=== PATIENT | male | born 1990 | race Caucasian/White ===

== ENCOUNTER 2016-10-18 13:13 | Emergency (ER) | payer OTHER, MEDICARE, MEDICAID ==
[~2016-10-18] VITALS: Ht 175.3 cm; Wt 67.9 kg
[~2016-10-18 13:13] MED LIST: AGM875T PO; CLOB10TA PO; DOCU250C2 PO; FAMO20T PO; INSU100I SQ; INSU100I25 SQ; LAMO100T PO; LEVO25TA5 PO; LIP40 PO; LISI-567 PO; LIT300 PO; OXCA150T PO; RISP1TAB90 PO; TOPI25TA26 PO; VENL75TA3 PO
[2016-10-18 13:17] VITALS: BP 96/66; PULSE 121; RESP 18; O2SAT 97
--- NOTE | 2016-10-18 13:38 | ED.REPORT ---
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 He has also had a cough. The patient is unable to provide a timeline of symptoms. His dad is concerned that the patient may have pneumonia because he sits outside in the cold a lot. Nursing Notes Stated Complaint: CHEST PAIN Chief Complaint: Chest Pain Nursing Notes Reviewed: Yes Allergies: Coded Allergies: bupropion (Verified Allergy, Unknown, 04/13/16) quetiapine fumarate (Verified Allergy, Unknown, 04/13/16) lorazepam (Verified Adverse Reaction, Unknown, does not go well with his other meds per pshychiatrist, 04/13/16) Scheduled Amoxicillin/Clav K 875-125 mg (Amoxicillin/Clav K 875-125 mg) 875 Mg Tab 1 TAB PO BID Atorvastatin (Lipitor) 40 Mg Tablet 40 MG PO HS Clobazam (Onfi) 10 Mg Tablet 10 MG PO BID Docusate Sodium (Docusate Sodium) 250 Mg Capsule 250 MG PO DAILY Famotidine (Pepcid) 20 Mg Tablet 20 MG PO DAILY Insulin Detemir (Levemir Flextouch) 100 Unit/1 Ml Insuln.pen 22 UNIT SQ AM Insulin Detemir (Levemir Flextouch) 100 Unit/1 Ml Insuln.pen 16 UNIT SQ PM Lamotrigine (Lamictal) 100 Mg Tablet 300 MG PO 0800 Lamotrigine (Lamictal) 100 Mg Tablet 200 MG PO 16 Levothyroxine (Levothyroxine) 25 Mcg Tablet 25 MCG PO DAILY Lisinopril (Lisinopril) 20 Mg Tablet 20 MG PO DAILY [place] Carbonate ([place] Carbonate) 300 Mg Cap 600 MG PO HS Oxcarbazepine (Oxcarbazepine) 150 Mg Tablet 450 MG PO BID Risperidone (Risperdal) 1 Mg Tablet 3 MG PO DAILY Risperidone (Risperdal) 1 Mg Tablet 1.5 MG PO HS Topiramate (Topamax) 25 Mg Tablet 50 MG PO 2000 Venlafaxine (Venlafaxine) 75 Mg Tablet 150 MG PO BID Scheduled PRN Insulin Aspart (NovoLOG U-100 Pen) 100 Unit/Ml Insuln.pen 0 SQ DIRECTED PRN PRN hyperglycemia General Time Seen by MD: 13:26 Chief Complaint Chest pain Hx Obtained From: Patient, Other family... (Father) Arrived By: Walk-in Sudden in Onset?: No Onset Occurred: Onset unknown Symptom Duration: Since onset Location: : Chest Quality: Painful Severity: Current: Moderate Severity: Maximum: Moderate Recent Healthcare: No recent hospitalization Similar Sx Previous: No Past Medical History Past Medical History Notes: Neuro: Dr. Melton PCP: Dr. Mcdonald Psych: Dr. Chaudhry Case Manager Specialist: Dr. Bowen Phycologist: Dr. Aponte Past Medical History 1. Seizure disorder, followed by Dr. Veras at [facility]. 2. Traumatic brain injury. 3. Polysubstance abuse. 4. Major depression. 5. History of suicidal ideation and multiple attempts. 6. Traumatic urethral injury 6. Diabetes mellitus type 1. 7. Hypothyroidism. 8. Hypertension. 9. Hyperlipidemia. 10. 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 11. Traumatic brain injury with expressive aphasia. 12. Stroke Reports: Diabetes mellitus, Mental illness Past Surgical History pelvis rebuilt at [facility] [place] 2004 Family History He has a family history of bipolar and schizophrenia. Records show 2 completed suicides one on each side of the family Smoking History Former Smoker Social History Smokes with a vape pen, recently quit Alcohol Use: Denies alcohol use Drug Use: Denies drug use Other Social History: Good social support, Lives with parents, Local resident Occupation no work or school Ambulatory Status Independent Review of Systems Full Review of Systems Respiratory: Reports: Non-productive cough Cardiovascular: Reports: Chest pain Complete sys rev & neg: except as marked. Physical Exam Vital Signs Vital Signs Date Time Temp Pulse Resp B/P Pulse Ox O2 Delivery O2 Flow Rate FiO2 10/18/16 15:07 82 16 111/68 96 Room Air 10/18/16 15:03 82 16 111/68 96 Room Air 10/18/16 13:47 108 21 96/68 95 Room Air 10/18/16 13:17 36.9 121 18 96/66 97 Room Air Initial VS: Reviewed Head / Eyes: Atraumatic, Normocephalic, PERRL ENT: Mucous membranes moist, Conjunctiva normal, No scleral icterus Neck: Supple, Non-tender, Full range of motion Abdomen / GI: Soft, Non-tender, No guarding, No rebound, No distention Lymphatic: No lymphadenopathy Extremities: Vascular intact, Neuro intact, No swelling, No tenderness Skin: Warm, Dry, No cyanosis Neurologic: Nonfocal General/Constitutional: Awake, Alert, Cooperative Respiratory / Chest: Breath sounds NL, Breath sounds = bilat, No respiratory distress, No rales, No rhonchi, No wheezing, No retractions, No stridor, No chest wall deformity Tenderness about his right lateral chest wall. There is no rash or signs of trauma. Cardiovascular: Regular rhythm, Heart sounds NL, No murmurs, No rubs, Cap refill not delayed, Peripheral circulation NL, Pulses = bilaterally, No gross BP differential Heart Rate / Rhythm: Positive: Tachycardia Lower Extremity / Pelvis / MS: Neurologic intact, Vascular intact, No edema No calf swelling or tenderness Interpretation & Diagnostics Lab Results Interpretation Result Diagram: 10/18/16 1412 10/18/16 1412 Test 10/18/16 14:12 10/18/16 14:26 White Blood Count 8.6th/mm3 (3.8-10.1) Red Blood Count 4.36mil/mm3 (4.40-5.80) Hemoglobin 13.6g/dL (13.8-17.2) Hematocrit 39.1% (41.0-50.0) Mean Corpuscular Volume 89.7fL (81-100) Mean Corpuscular Hemoglobin 31.2pg (27.0-35.0) Mean Corpuscular Hemoglobin Concent 34.8% (32.0-37.0) Red Cell Distribution Width 12.2% (12.3-15.4) Platelet Count 228bil/L (150-400) Neutrophils (%) (Auto) 72.1% (40-74) Lymphocytes (%) (Auto) 15.1% (14-46) Monocytes (%) (Auto) 9.0% (4-12) Eosinophils (%) (Auto) 2.8% (0-5) Basophils (%) (Auto) 0.9% (0-3) Sodium Level 132mEq/L (134-144) Potassium Level 4.7mEq/L (3.5-5.2) Chloride Level 96mEq/L (97-108) Carbon Dioxide Level 21mmol/L (18-29) Blood Urea Nitrogen 24mg/dL (6-20) Creatinine 1.05mg/dL (0.76-1.27) Estimat Glomerular Filtration Rate 90mL/min (>59) Glucose Level 217mg/dL (60-99) Calcium Level 9.5mg/dL (8.5-10.1) Total Bilirubin 0.3mg/dL (0.0-1.2) Aspartate Amino Transf (AST/SGOT) 15U/L (0-50) Alanine Aminotransferase (ALT/SGPT) 15U/L (0-44) Alkaline Phosphatase 119U/L (25-150) Total Protein 6.7g/dL (6.4-8.4) Albumin 4.2g/dL (3.4-5.0) Hold Blum Top Tube Received (Received) ECG Interpretation ECG Interpretation: Sinus tachycardia with a rate of 110 bpm Otherwise normal EKG Time: 13:30 Interpreted by: ED physician X-Ray Chest Interpretation Chest Xray Interpretation: No acute cardiopulmonary disease. View: Portable, 1 view Interpretation / Wet Read by: Wet read ED physician, Interpret - ED physician Re-Eval/Medical Decision Med Decision/Clinical Course The patient is a 26 year old male with history of a traumatic brain injury with cognitive delay and expressive aphasia, seizures, stroke, polysubstance abuse, depression, diabetes mellitus type I, hypothyroidism, and hyperlipidemia, who was brought to the emergency department by his father for right-sided chest pain. He has also had a cough. On arrival the patient is tachycardic though otherwise afebrile and hemodynamically stable with good oxygen saturation on room air. His lungs are clear. IV access was obtained and the patient was treated with IV fluids. His tachycardia resolved. He remained afebrile hemodynamically stable. CXR: Obtained, reviewed and interpreted by myself shows no evidence of acute infiltrates, effusions or pneumothorax. Cardiac and mediastinal silhouette normal. No bony or soft tissue abnormalities. EKG was obtained and interpreted by myself as documented above. LABS CBC: no leukocytosis, stable hematocrit, CMP: sodium 132, BUN 24, creatinine 1.05, LFTs normal, no significant electrolyte abnormalities. No evidence of pneumonia or pneumothorax. Patient is low risk for pulmonary embolism without any physical exam findings suggestive of DVT. Patient has no major pulmonary embolus risk factors. Chest x-ray reassuring as documented above. Chest wall pain reproducible with palpation suggesting musculoskeletal etiology. I feel the patient is at this time appropriate for discharge home. Advised ice pack/hot packs and stretching. Follow-up and return precautions were reviewed in detail with the patient as well as his father and he is discharged in stable condition. Source of Hx: Old records, Family Time of Eval: 14:54 Re-Evaluation/Progress Note: Rechecked the patient. Discussed plan for discharge. All questions were addressed. Counseled Regarding: Diagnosis, Lab results, Need for follow-up, When/why to return to ED Discharge & Departure Primary Impression: Chest wall pain Additional Impressions: Cough History of traumatic brain injury Tachycardia Dehydration Disposition: Home Discharge Condition All VS Reviewed: Yes Condition: Stable Additional Instructions: Thank you for seeking care at the emergency room. It is difficult for us to make definitive diagnoses in the ED but we believe that you are experiencing musculoskeletal pain. Our primary goal today in the ED was to evaluate you for any life-threatening conditions. Your evaluation was reassuring. You can take Ibuprofen and/or Tylenol as needed for your pain. You can also try applying a hot pack or ice pack if either of these help. You should follow-up with your primary doctor in the next week. You should return to the ED immediately if you develop increased pain, fevers, vomiting, shortness of breath, chest pain, lightheadedness, weakness or any other concerning signs or symptoms. Thank you for letting us partake in your care today. Referrals: Aren Mcdonald MD (PCP) Scribe Attestation Portions of this note were transcribed by Janna Chen. I, Dr. Tian personally performed the history, physical exam and medical decision-making; I reviewed and confirmed the accuracy of the information in the transcribed note. Signed by: Mariah Porter, 10/18/2016 at 1505. copies to: Aren Mcdonald MD, Beck O MD Oct 18, 2016 13:38 Janna Chen Oct 18, 2016 13:48
[2016-10-18 13:47] VITALS: BP 96/68; PULSE 108; RESP 21; O2SAT 95
[2016-10-18] MEDS ORDERED: 0.9% Sodium Chloride 1,000 ML IV ONE (13:49)
[2016-10-18 14:16] LABS: BASOPHILS % (AUTO) 0.9 % (0-3); EOSINOPHILS % (AUTO) 2.8 % (0-5); Mean Corpuscular Hemoglobin 31.2 pg (27.0-35.0); Mean Corpuscular Volume 89.7 fL (81-100); NEUTROPHILS % (AUTO) 72.1 % (40-74); Platelet Count 228 bil/L (150-400)
[2016-10-18 15:03] VITALS: BP 111/68; PULSE 82; RESP 16; O2SAT 96
[2016-10-18 15:07] VITALS: BP 111/68; PULSE 82; RESP 16; O2SAT 96
--- NOTE | 2016-10-18 15:15 | DRSVH ---
PROCEDURE: X-RAY CHEST, TWO VIEWS ([id number]) INDICATIONS: chest pain TECHNIQUE: 2 views of the chest were acquired. COMPARISON: [facility], CR, XR CHEST 1VW (PORTABLE), 01/05/2016, 21:03. [facility], CR, XR CHEST 1VW (PORTABLE), 01/05/2016, 21:26. FINDINGS: Surgical changes and devices: None. Lungs and pleura: No pleural effusions or pneumothorax. Lungs are clear. Mediastinum: Mediastinal contours are normal. Heart size is normal. Bones and chest wall: Old left sixth and seventh rib fractures are noted. Soft tissues appear unrema rkable. IMPRESSION: No acute cardiopulmonary disease. Dictated by: Yvette Patel M.D. on 10/18/2016 at 14:47 Approved by: Yvette Patel M.D. on 10/18/2016 at 14:48
== END 2016-10-18 15:09 | disposition home or self-care (01) ==
LOC: SED 13:13
DX: R07.89 Other chest pain (principal); R05 Cough; R00.0 Tachycardia, unspecified; E86.0 Dehydration; I10 Essential (primary) hypertension; E10.9 Type 1 diabetes mellitus without complications; E03.9 Hypothyroidism, unspecified; E78.5 Hyperlipidemia, unspecified; Z86.73 Personal history of transient ischemic attack (TIA), and cerebral infarction without residual deficits; Z87.820 Personal history of traumatic brain injury; Z79.4 Long term (current) use of insulin; Z87.891 Personal history of nicotine dependence; Z88.5 Allergy status to narcotic agent; Z88.8 Allergy status to other drugs, medicaments and biological substances
CPT/HCPCS: 71020; 80053; 85025; 93005; 96361; 96374; 99285; J7030

== ENCOUNTER 2017-03-18 16:28 | Inpatient (IN) | payer OTHER, MEDICARE, MEDICAID ==
[~2017-03-18] VITALS: Ht 167.6 cm; Wt 65.9 kg
[2017-03-18 16:38] VITALS: BP 121/80; PULSE 103; RESP 20; O2SAT 97
[2017-03-18 18:42] LABS: BASOPHILS % (AUTO) 0.6 % (0-3); EOSINOPHILS % (AUTO) 1.7 % (0-5); Mean Corpuscular Hemoglobin 32.1 pg (27.0-35.0); Mean Corpuscular Volume 92.1 fL (81-100); NEUTROPHILS % (AUTO) 77.3 % (40-74); Platelet Count 313 bil/L (150-400)
[2017-03-18 18:54] VITALS: BP 117/67; PULSE 72; RESP 20; O2SAT 99
--- NOTE | 2017-03-18 19:01 | ED.REPORT ---
HPI-Psychiatric Illness Date of Service Mar 18, 2017 ED Provider: Doug Yu MD A 27 year old male with a history of seizures, traumatic brain injury, diabetes , depression, suicidal ideation with self-mutilation and multiple attempts, stroke, hypertension and polysubstance abuse is brought to the ED by family due to suicidal ideation. The pt's mother came home today and found him standing in the garage confused, holding his ears, and responding to internal stimuli. The pt expressed suicidal ideation, which has caused significant concern for his mother. In recent weeks, the pt has displayed a pattern of increasing confusion. He has been found by a neighbor in the neighbor's home at night, and was later found by another neighbor in a field without knowledge of how he got there. Per pt, he "does what the voices tell him to" and is not feeling suicidal at this time. The pt is also requesting to discontinue all of his medications with the exception of his diabetes medication. Nursing Notes Stated Complaint: DEPRESSION Chief Complaint: Psychiatric Complaint Nursing Notes Reviewed: Yes Allergies: Coded Allergies: bupropion (Verified Allergy, Unknown, 04/13/16) quetiapine fumarate (Verified Allergy, Unknown, 04/13/16) lorazepam (Verified Adverse Reaction, Unknown, does not go well with his other meds per pshychiatrist, 04/13/16) Scheduled Atorvastatin (Lipitor) 40 Mg Tablet 40 MG PO HS Clobazam (Onfi) 10 Mg Tablet 10 MG PO BID Docusate Sodium (Docusate Sodium) 250 Mg Capsule 250 MG PO DAILY Famotidine (Pepcid) 20 Mg Tablet 20 MG PO DAILY Haloperidol (Haloperidol) 5 Mg Tablet 5 MG PO QAM Haloperidol (Haloperidol) 5 Mg Tablet 10 MG PO HS Insulin Detemir (Levemir Flextouch) 100 Unit/1 Ml Insuln.pen 22 UNIT SQ AM Insulin Detemir (Levemir Flextouch) 100 Unit/1 Ml Insuln.pen 16 UNIT SQ PM Lamotrigine (Lamictal) 100 Mg Tablet 300 MG PO 0800 Lamotrigine (Lamotrigine) 100 Mg Tablet 200 MG PO HS Levothyroxine (Levothyroxine) 25 Mcg Tablet 25 MCG PO DAILY Lisinopril (Lisinopril) 20 Mg Tablet 20 MG PO DAILY [place] Carbonate ([place] Carbonate) 300 Mg Cap 600 MG PO HS Oxcarbazepine (Oxcarbazepine) 300 Mg/5 Ml Oral.susp 450 MG PO QAM Oxcarbazepine (Oxcarbazepine) 300 Mg/5 Ml Oral.susp 600 MG PO HS Risperidone (Risperdal) 1 Mg Tablet 3 MG PO DAILY Risperidone (Risperdal) 1 Mg Tablet 1.5 MG PO HS Topiramate ER (Trokendi XR) 100 Mg Capsule 100 MG PO HS Venlafaxine (Venlafaxine) 100 Mg Tablet 200 MG PO BID Scheduled PRN Insulin Aspart (NovoLOG U-100 Pen) 100 Unit/Ml Insuln.pen 0 SQ DIRECTED PRN PRN hyperglycemia General Time Seen by MD: 18:56 Chief Complaint Suicidal ideation Hx Obtained From: Patient, Other family... Arrived By: Walk-in Onset Occurred: 1 - 4 hours ago Symptom Duration: Since onset Recent Healthcare: Recent doctor visit Similar Sx Previous: Yes Risk-Psychiatric Illness Suicide Risk Stratification Suicide Risk Factors - Adult: : Previous attempt: Prior psych admission: Substance abuse RF Statements: Risk factors reviewed Past Medical History Past Medical History Notes: Neuro: Dr. Melton PCP: Dr. Mcdonald Psych: Dr. Chaudhry Medical Assistant Internal Medicine: Dr. Bowen Phycologist: Dr. Aponte Last Admit 05/2016 w/depresison Past Medical History 1. Seizure disorder, followed by Dr. Veras at [facility]. 2. h/o Traumatic brain injury. 3. h/o Polysubstance abuse. 4. Major depression. 5. History of suicidal ideation and multiple attempts. 6. Traumatic urethral injury 6. Diabetes mellitus type 1. 7. Hypothyroidism. 8. Hypertension. 9. Hyperlipidemia. 10. Cognitive delay secondary to traumatic brain injury as a child (Traumatic brain injury with expressive aphasia) 12. Stroke Reports: Mental illness Past Surgical History pelvis rebuilt at [facility] [place] Family History He has a family history of bipolar and schizophrenia. Records show 2 completed suicides one on each side of the family Smoking History Former Smoker Social History Smokes with a vape pen, recently quit Alcohol Use: Denies alcohol use Other Social History: Good social support, Lives with parents, Local resident Occupation no work or school Ambulatory Status Independent Review of Systems Respiratory: Denies: Non-productive cough, Shortness of breath Cardiovascular: Denies: Chest pain GI: Denies: Abdominal pain, Vomiting Skin: Denies Rash Psychiatric: Reports: Depression, Suicidal ideation (denies currently) Complete sys rev & neg: except as marked. Physical Exam Initial Vital Signs Vital Signs (First) Date Time Temp Pulse Resp B/P Pulse Ox O2 Delivery O2 Flow Rate FiO2 03/18/17 16:38 36.8 103 20 121/80 97 Room Air Initial VS: Reviewed, Vital signs abnormal (Hr 103) General/Constitutional: Awake, Alert Neurologic: Oriented X3, No motor deficits, No sensory deficits Patient is slow, speech is slow-these are baseline for the patient Psychiatric: Affect NL Abnormal Mood/Affect: Positive: Flat affect Abnormal Thinking / Perception: Positive: Insight abnormal, Judgment abnormal, Suicidal, no plan Head / Eyes: Atraumatic, Normocephalic, PERRL, EOMI ENT: Atraumatic, Airway patent, Mucous membranes moist Respiratory / Chest: Atraumatic, Breath sounds NL, Breath sounds = bilat, No respiratory distress Cardiovascular: Heart rate NL, Regular rhythm, Heart sounds NL Abdomen: Atraumatic, Soft, Non-tender Skin: Atraumatic, Color NL, No rash, Warm, Dry Neck: Atraumatic, Supple, Full range of motion Back: Atraumatic, Full range of motion Upper Extremity / MS: Atraumatic, Full range of motion Lower Extremity / Pelvis / MS: Atraumatic, Full range of motion Interpretation & Diagnostics Lab Results Interpretation Result Diagram: 03/18/17182903/18/171914 Test 03/18/17 18:30 03/18/17 19:15 White Blood Count 8.8th/mm3 (3.8-10.1) Red Blood Count 4.20mil/mm3 (4.40-5.80) Hemoglobin 13.5g/dL (13.8-17.2) Hematocrit 38.7% (41.0-50.0) Mean Corpuscular Volume 92.1fL (81-100) Mean Corpuscular Hemoglobin 32.1pg (27.0-35.0) Mean Corpuscular Hemoglobin Concent 34.9% (32.0-37.0) Red Cell Distribution Width 12.0% (12.3-15.4) Platelet Count 313bil/L (150-400) Neutrophils (%) (Auto) 77.3% (40-74) Lymphocytes (%) (Auto) 13.3% (14-46) Monocytes (%) (Auto) 7.0% (4-12) Eosinophils (%) (Auto) 1.7% (0-5) Basophils (%) (Auto) 0.6% (0-3) Sodium Level 135mEq/L (134-144) Potassium Level 4.4mEq/L (3.5-5.2) Chloride Level 97mEq/L (97-108) Carbon Dioxide Level 23mmol/L (18-29) Blood Urea Nitrogen 14mg/dL (6-20) Creatinine 0.94mg/dL (0.76-1.27) Estimat Glomerular Filtration Rate 102mL/min (>59) Glucose Level 293mg/dL (60-99) Calcium Level 9.0mg/dL (8.5-10.1) Total Bilirubin 0.2mg/dL (0.0-1.2) Aspartate Amino Transf (AST/SGOT) 25U/L (0-50) Alanine Aminotransferase (ALT/SGPT) 26U/L (0-44) Alkaline Phosphatase 88U/L (25-150) Total Protein 6.3g/dL (6.4-8.4) Albumin 4.1g/dL (3.4-5.0) Thyroid Stimulating Hormone (TSH) 1.640uIU/mL (0.450-4.500) Hold Blum Top Tube Received (Received) [place] Level 0.5mEq/L (0.5-1.5) Lab Results Interpretation: Normal CMP mild hyperglycemia lithium level normal Alcohol 0 U tox negative Re-Eval/Medical Decision Med Decision/Clinical Course This is a 27-year-old male who presents with family with increasing periods of psychosis, depression, and intermittent suicidal ideation. Please see [employer] note for additional details of patients behaviors. Reports he is currently safe, but there is been escalating pattern or worsening symptoms in recent weeks. He is interested in voluntary hospitalization. He is cooperative in the department. Is no signs of intoxication or withdrawal. No acute medical issues were identified initial evaluation. [place] levels normal. She is hemodynamically [employer], and the patient and accepted to the care center for continued management. Source of Hx: Old records Re-Evaluation/Progress : Time of Eval: 21:29 Patient Status: Condition improved Re-Evaluation/Progress Note: Pt rechecked, who is stable. The diagnosis and plan for admission are discussed. The pt understands and agrees with the plan. All questions are addressed at this time. Consultation : Call Returned at: 21:26 Note: Spoke with social human services assistants regarding pt's case. Pt has been accepted to the care center. Differential Diagnosis: Positive: Suicidal, Negative: Alcohol abuse Counseled Regarding: Diagnosis, Lab results, Need for admission Discharge & Departure Impression: Primary Impression: Psychosis Psychosis type: unspecified psychosis type Qualified Code: F29 - Unspecified psychosis not due to a substance or known physiological condition Additional Impression: Suicidal ideation Disposition: ADMITTED TO HOSPITAL Discharge Condition All VS Reviewed: Yes Condition: Stable Referrals: Aren Mcdonald MD (PCP) Scribe Attestation Portions of this note were transcribed by Hugo Matthews. I, Dr. Yu personally performed the history, physical exam and medical decision-making; I reviewed and confirmed the accuracy of the information in the transcribed note. Signed by: Mariah Baker, 03/18/2017 and 0595. copies to: Aren Mcdonald MD, Matthew F MD Mar 18, 2017 19:01 HUGO MATTHEWS Mar 18, 2017 21:33
[2017-03-18 20:54] VITALS: BP 112/72; PULSE 82; RESP 20; O2SAT 96
[2017-03-18] MEDS ORDERED: TOPI100C PO (21:42)
[2017-03-18] MEDS ORDERED: CLOB10TA PO (21:42)
[2017-03-18] MEDS ORDERED: LAMO100T2 PO (21:42)
[2017-03-18] MEDS ORDERED: OXCA300O5 PO ×2 (21:42)
[2017-03-18] MEDS ORDERED: VENL100T3 PO (21:42)
[2017-03-18] MEDS ORDERED: HAL5 PO ×2 (21:42)
[2017-03-18] MEDS ORDERED: Insulin GLARgine 100 Unit/mL Syringe SUBQ ONE (23:55)
[2017-03-19] MEDS ORDERED: Insulin LISPRO 300 Unit/3 mL Inj SUBQ ONE ×2 (00:05→01:55)
[2017-03-19] MEDS ORDERED: risperiDONE 1 mg Tablet PO ONE (00:25)
[2017-03-19] MEDS ORDERED: lamoTRIgine 100 mg Tablet PO ONE (00:25)
[2017-03-19] MEDS ORDERED: OXcarbazepine 300 mg Tablet PO ONE (00:25)
--- NOTE | 2017-03-19 06:38 | NUR ---
admit note nursing 11-7 this is 27 yr old male who was brought to [facility] er where he was medically cleared, evaluated and accepted as a voluntary patient. he had a fight with his parents and started to cut himself. he has a hx of self mutilation and was admitted to this unit in may 2016. arrived with er staff/security at 0620. presented as cooperative and seeking help. denies any acute medical/physical injury/need. blood sugar stabilized in the er with the most recent being 102 at 0548. asked to sign paperwork later in the morning, agreed to no self harm, searched, briefly oriented to the unit/program, given bed 219 and is resting comfortably, assessed q 15 minutes. [email or web address]
[2017-03-19] MEDS ORDERED: Alum-Mag Hydrox-Simeth 30 mL Suspension PO PRN (06:55)
[2017-03-19] MEDS ORDERED: Benzocaine-Menthol Lozenge 2/Pkg PO PRN (06:55)
[2017-03-19] MEDS ORDERED: Magnesium Hydroxide 10 mL Oral Concentration PO PRN (06:55)
[2017-03-19] MEDS: Insulin GLARgine 100 Unit/mL Syringe SUBQ SCH ×2 (12:10→21:00)
[2017-03-19] MEDS ORDERED: Insulin GLARgine 100 Unit/mL Syringe SUBQ SCH (12:10)
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
[2017-03-19] MEDS ORDERED: Glucose 40% Oral Gel 15 Gm Tube PO PRN (13:35)
[2017-03-19] MEDS ORDERED: Dextrose 10% 250 ML IV PRN (13:50)
[2017-03-19] MEDS: CLOBAZAM 10 MG PO SCH ×2 (15:05→21:52)
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
[2017-03-19 15:27] VITALS: BP 119/83; PULSE 65; RESP 16
--- NOTE | 2017-03-19 15:52 | NUR ---
Nursing Dayshift: S: "I really don't want to take any medicine." O: Patient resistive to medications. Accepted Insulin Lantus 22 units after lunch. Blood sugars have been 145 prior to breakfast and 324 after patient had eaten lunch. Patient's mother brought in Clobazam 10 mg tablets from home to be used while patient is here. Accepted 1 tablet this afternoon with some encouragement. Has been up for breakfast eating 75%. Declined lunch. Has enquired about dinner. Anxiety and depression "maybe a little". Denies harmful thoughts and hallucinations. A: Quiet. Isolative. Resistive to treatment. P: CPOC. Monitor mood and behavior.
[2017-03-19] MEDS: Insulin LISPRO 300 Unit/3 mL Inj SUBQ SCH ×2 (17:15→22:00)
--- NOTE | 2017-03-19 18:51 | NUR ---
[facility] Day Shift Pt spends the majority of the shift resting in his room. Pt only left his room to attend breakfast in the AM (pt ate approx 50% of meal). Pt affect appears blunt, flat. Pt is not interactive with staff or peers when active on the unit. Pt did not attend group activities or any other meals throughout the shift.
[2017-03-19] MEDS ORDERED: TOPIRAMATE 100 MG PO SCH (21:00)
[2017-03-19] MEDS: lamoTRIgine 100 mg Tablet PO SCH (21:00)
[2017-03-20] MEDS: Insulin GLARgine 100 Unit/mL Syringe SUBQ SCH (02:52)
--- NOTE | 2017-03-20 05:21 | NUR ---
Nursing Note Director Of Physiotherapy Services 7pm to 7am Pt in bed at start of shift, did not come out for snack or group. Approached pt. to discuss HS meds. He lay very still in bed, wide eyed, appeared paranoid and with mild tremors. Pt reported anxiety but unable to rate his mood. He is a poor historian, has difficulty retrieving information, and speech is latent at times. Pt refused HS medications except clobozam which he takes for his seizure disorder and agreed to take clonazepam 1mg prn for anxiety. Per offgoing RN pt has had inadequate nutritional intake. He declined meals today and refused staff offers of food and fluid. BS at HS was 93, did not meet criteria for sliding scale insulin and due to lack of food and fluid intake today Lantus was held. Pt did eat a few bites of pudding and had some apple juice at approx. 2300. At 0300 BS rechecked at 171 and was given Lantus 16 units. Monitored pt. with q 15 minutes face checks for safety, location and accountability.
[2017-03-20] MEDS: Insulin LISPRO 300 Unit/3 mL Inj SUBQ SCH ×3 (08:00→21:53)
[2017-03-20] MEDS: lamoTRIgine 100 mg Tablet PO SCH ×2 (08:00→21:00)
[2017-03-20] MEDS: CLOBAZAM 10 MG PO SCH ×3 (08:30→22:06)
[2017-03-20 09:00] VITALS: BP 114/73; PULSE 63; RESP 14
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
--- NOTE | 2017-03-20 15:42 | NUR ---
Developmental Training Counselor/Counselor S:"The meds make my head look funny." O: Patient denies any SI or HI, no AVH, no depression or anxiety but stated that he was bored. A: Patient seemed very disoriented and stated that he and his parents had decided to modify his medications and stop them all. He stated that he is feeling pretty good aside from the boredom and that he ate all of his lunch. Patient slept for 8 hours. Has kept to himself in his room for most of the day. Suggestions on activities were made but patient declined. P: Follow care plan and coordinate with outpatient providers.
--- NOTE | 2017-03-20 17:41 | NUR ---
Observations 0700 to 1900 Pt did not attend community meeting. Pt did not attend recreational activities. Pt declined a snack. Pt remains in bed throughout most of shift and requires much coaxing to attend lunch, though he did not eat. RN reported he had an ensure. Pt maintained behavioral control. Respirations were observed while asleep. Breakfast: 0%. Lunch: %. Staff completed 15 min close observations as ordered.
--- NOTE | 2017-03-20 19:38 | NUR ---
Nurses Note Evening Patient was found diaphoretic and tremulous.His BS at 1515 =263. Patient tried to explain having had an episode of increased tremors, and hyperventilating. When asked if this feeling was one of anger or nervousness or fear he stated it was fear.Patient received Klonopin 1mg at 1549 with calming response. His BS at 3731=527 and received Lispro 2 units SQ sliding scale coverage. Patient did not eat dinner but drank a full Ensure. He appeared more relaxed and after dinner called his mother. Patient continues to resist or refuse medications without encouragement. Patient continues to have difficulties comprehending instructions verbal as well as written due to H/O TBI. Will maintain q 15min. checks for safety and support,encourage medication compliance. Addendum: 03/20/17 at 2020 by OREN CHOI RN Amended: Links added.
--- NOTE | 2017-03-20 20:00 | PCM.PNPSY ---
Subjective Date of Service Mar 20, 2017 Subjective Patient only taking Onfi and insulin. Reports that he is feeling "pretty good" and denies depression or anxiety. Patient unable to clearly articulate why he stopped medications other than his family wanted to stop medications and only have a minimal number. We discussed the need to take medications as prescribed until we are able to discuss with neurology and was encouraged to at least take oxcarbazepine, but patient declines other medications. Denies side effects. Sleep: Okay Appetite: "pretty good" though not eating much. Suicidal and homicidal ideation: denies Auditory hallucinations: denies Visual hallucinations: denies Other Psychotic Symptoms: denies Anxiety/Depression: "just bored" Current Medications Current Medications Clonazepam 1 mg HS PRN PO Last administered on 03/19/17 22:01; Admin Dose 1 MG ; Start 03/19/17 at 06:55 Clonazepam 1 mg Q4H PRN PO Last administered on 03/20/17 15:49; Admin Dose 1 MG; Start 03/20/17 at 15:43 Haloperidol 5 mg ONCE ONCE PO Last administered on 03/19/17 03:14; Admin Dose 5 MG; Start 03/19/17 at 00:25; Stop 03/19/17 at 00:26; Status DC Insulin Glargine 16 unit HS SUBQ Last administered on 03/20/17 02:52; Admin Dose 16 UNIT; Start 03/19/17 at 12:10; Stop 03/20/17 at 12:58; Status DC Insulin Glargine 17 unit ONCE ONCE SUBQ Last administered on 03/19/17 00:38; Admin Dose 17 UNIT; Start 03/18/17 at 23:55; Stop 03/18/17 at 23:56; Status DC Insulin Glargine 22 unit DAILY SUBQ Last administered on 03/19/17 13:46; Admin Dose 22 UNIT; Start 03/19/17 at 12:10; Stop 03/20/17 at 12:57; Status DC Insulin Human Lispro 4 unit ONCE ONCE SUBQ Last administered on 03/19/17 02:05 ; Admin Dose 4 UNIT; Start 03/19/17 at 01:55; Stop 03/19/17 at 01:56; Status DC Insulin Human Lispro 8 unit ONCE ONCE SUBQ Last administered on 03/19/17 00:38 ; Admin Dose 8 UNIT; Start 03/19/17 at 00:05; Stop 03/19/17 at 00:06; Status DC Insulin Human Lispro Recommend administration within 20 ... [facility] SUBQ Last administered on 03/20/17 17:52; Admin Dose 2 UNIT; Start 03/19/17 at 17:30 Oxcarbazepine 600 mg HS PO Last administered on 03/20/17 17:53; Admin Dose 600 MG; Start 03/19/17 at 21:00 Patient Own Medication 1 ea BID PO Last administered on 03/20/17 12:32; Admin Dose 1 EA; Start 03/19/17 at 14:31 Mental Status Exam Appearance: Neat/well groomed Attitude: Pleasant, Guarded Behavior: Stereotypic movements Affect: Restricted Mood: Euthymic Thought Process/Associations: Other (poverty of speech) Speech Production: Paucity Speech Rate: Lags/Latency Speech Articulation: Other (mild dysarthria) Thought Content: Appropriate, Suspicious Danger to Self/Suicidal Ideati: None Danger to Others: None Hallucinations: Auditory (Denies), Visual (Denies) Consciousness: Alert Orientation: Person, Place, Situation Memory: Short Term Memory (Impaired), Dashboard Developer Memory (Impaired) Estimate Intellectual Function: Average Basis for IQ estimate: Word use/vocabulary, Educational history Attention/Concentration & Cogn: Impaired Insight: Limited Judgement: Poor Result Diagram: 03/18/17 1830 03/18/171914 Mental Health Plan Per psychiatric intake, the client is a 27-year-old white male, well known to the [facility], with cognitive delay related to a traumatic brain injury approximately seven years ago. He struggles with multiple medical illnesses including diabetes, hypothyroidism, seizure disorder, and cognitive delay. He is followed by psychiatrist Dr. Chaudhry, a neurologist, and his family physician. They have all worked to develop a treatment program including structure, therapy, and medications. For unclear reasons he began to have increased confusion over the past several weeks and is now complaining of suicidal ideation, depression, and psychosis. [place] AXIS I: Bipolar, Depression per history, cognitive disorder due to closed head injury AXIS II: Defer AXIS III: See PMH AXIS IV: Moderate AXIS V: GAF 30 Treatments 1. The patient is admitted to the inpatient unit and will be provided a safe and secure environment. 2. The patient is denying current active suicidality and is not in need of a one-to-one at this time. 3. The patient is encouraged to participate with group and milieu activities. 4. The patient will be seen by the treatment team on a daily basis to assess symptoms, side effects and response to treatment. 5. The patient is encouraged to take prescribed medications. 6. If continues to refuse lamotrigine, will need to retitrate. 7. Medical consult regarding diabetes and hypertension. Appreciate consultation. 8. Need to consider referral to [facility] if continues to refuse medication. 9. Will need neurology consult. 10. Anticipated length of stay is 7-10 days. Tim Bravo MD Mar 20, 2017 20:00 Tim Bravo MD Mar 20, 2017 20:00
[2017-03-20] MEDS ORDERED: Insulin GLARgine 100 Unit/mL Syringe SUBQ SCH ×2 (21:00)
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
[2017-03-21] MEDS: Insulin LISPRO 300 Unit/3 mL Inj SUBQ SCH ×5 (08:00→21:41)
[2017-03-21] MEDS: lamoTRIgine 100 mg Tablet PO SCH ×2 (08:00→21:00)
--- NOTE | 2017-03-21 08:54 | NUR ---
Medications Pt offered am medications. He declined all stating "I don't take all these. I don't want them." Pt resting in bed presenting as guarded, anxious and internally preoccupied. He agreed to let me check in with him again in a half an hour. Addendum: 03/21/17 at 1020 by SHELLEY DE LEÓN RN Approached patient a second time. He agreed to take his home medication Clobazam this morning but continues to refuse all other medications. Pt continues to lay in bed quietly resting. He has not participated in morning activities.
[2017-03-21] MEDS: CLOBAZAM 10 MG PO SCH ×2 (10:17→18:58)
[2017-03-21 10:45] VITALS: BP 122/84; PULSE 61; RESP 16
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
--- NOTE | 2017-03-21 12:18 | NUR ---
Nursing Dayshift: S: "I don't feel like food right now." O: Patient declining meals today. Accucheck 149 at noon. Coverage of 1 unit held due to no PO intake. Patient also declined an Ensure. Up out of his room at present requesting a phone to call his parents. Meds per previous note. Denies anxiety, depression, harmful thoughts, and hallucinations. A: More animated. Confused. P: CPOC. Monitor mood and behavior. Offer PO nutrition throughout the day.
--- NOTE | 2017-03-21 17:35 | NUR ---
Observations [id number] Pt isolated much of the day to his room, not interacting much with other patients or staff unless approached. Pt appeared detached, aloof, and frustrated at times regarding needs. Pt did not attend meals, saying he was not hungry. Pt was given an ensure around 1500 which he did drink, but did not attend breakfast lunch or dinner. Pt did not attend group but did attend Community Meeting, not setting a specific goal. Pt made phone call to his family in the afternoon. Pt did shower and appears good with ADL's. Pt observed every 15 minutes of shift as directed.
--- NOTE | 2017-03-21 18:24 | NUR ---
Nurses Note Evening Patient continues to isolate in his room except for showering today.He refuses to eat solid food but is unable to give a reason. He accepted a Glucerna at breakfast and a Ensure at dinner. Patient does not relay his feelings easily but when asked if he felt nervous agreed and accepted a Klonopin 1mg at 1713 with calming effect. Patient has refused most all scheduled medications except for Onfi for seizures. His blood sugars have been elevated due to non adherence to a diabetic diet. Will continue to encourage expression of thoughts and feelings,acceptance of medication and solid food. Maintain q 15min. checks for safety and support Addendum: 03/21/17 at 1908 by OREN CHOI RN Amended: Links added. Addendum: 03/21/17 at 1944 by OREN CHOI RN Nurses Note Evening Patient has been able to sit and watch TV with peers. He appeared more relaxed and was easily engaged in conversations. Will maintain q 15min. checks for safety and support.
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
[2017-03-21] MEDS: risperiDONE 2 mg Tablet PO SCH (21:00)
[2017-03-21] MEDS: Insulin GLARgine 100 Unit/mL Syringe SUBQ SCH (21:40)
[2017-03-21] MEDS: OXcarbazepine 300 mg Tablet PO SCH (21:42)
--- NOTE | 2017-03-22 07:21 | NUR ---
Nursing Note Well Tester 11pm to 7am Pt asleep at start of shift and remained asleep for the duration. No issues observed or reported. Monitored pt with q 15 minute face checks for safety, location, and accountability.
[2017-03-22] MEDS ORDERED: Insulin GLARgine 100 Unit/mL Syringe SUBQ SCH ×2 (08:00→21:00)
[2017-03-22] MEDS: Insulin LISPRO 300 Unit/3 mL Inj SUBQ SCH ×4 (08:19→22:00)
[2017-03-22] MEDS: CLOBAZAM 10 MG PO SCH ×2 (08:20→21:12)
[2017-03-22 09:45] VITALS: BP 121/77; PULSE 83; RESP 16
--- NOTE | 2017-03-22 12:00 | NUR ---
Nursing Day Shift Pt was out of his room for at least an hour mid morning. He stated "My anxiety is high but I don't want more medicine for it." Pt refused breakfast and lunch. He did drink Glycerna as a nutritional supplement. Morning blood glucose was 168, sliding scale coverage of 1 unit of lisinopril given. Noon blood glucose was 168, sliding scale coverage of 1 unit of lisinopril given. He was seen by the hospitalist and was anxious and tearful at that time. He was offered and accepted klonopin 1mg po prn which pt reports as "not helpful". Pt appeared slightly less anxious resting in bed and no longer tearful. Pt denied hearing voices this shift.
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
--- NOTE | 2017-03-22 15:18 | NUR ---
Lead Military Analyst/Counselor S:"I'm feeling better than yesterday." O: Patient denies any SI or HI, no AVH. he reported his anxiety at a 5 and his depression at a 2. A: Patient stated that his parents are visiting today. He is still displaying irrational thoughts and has isolated to his room for most of the day. He did spend some time out on the patio. P: follow care plan and coordinate with outpatient providers.
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
[2017-03-22] MEDS: risperiDONE 2 mg Tablet PO SCH (19:53)
[2017-03-22] MEDS: Insulin GLARgine 100 Unit/mL Syringe SUBQ SCH (21:20)
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
--- NOTE | 2017-03-22 22:59 | NUR ---
NURS NOTE EVENING "My friends are watching me through my phone." Endorses anxiety 10/10 and depression (did not rate). Tearful at times. Paranoid. Pt up in common areas much of shift. Parent visited during visiting hours. Pt reports feeling more sad after his mother left. Expresses anxiety about not being able to sleep. Dinner BG 324, HS BG 194.
--- NOTE | 2017-03-23 06:28 | NUR ---
Nursing Note Ritual Circumciser 11pm to 7am Pt awake multiple times throughout the night, despite taking Ambien with HS meds. He is anxious and paranoid. Reports having visual hallucinations. Seeing spiders on his gómez. Pt spent the shift fluctuating between bed area and dining room. Pt given Klonopin 1mg at 0000 with limited relief. Monitored pt with q 15 minute face checks for safety, location and accountability.
[2017-03-23] MEDS ORDERED: Insulin GLARgine 100 Unit/mL Syringe SUBQ SCH (08:00)
[2017-03-23 08:38] LABS: EOSINOPHILS % (AUTO) 3.5 % (0-5); MONOCYTES % (AUTO) 10.8 % (4-12); Mean Corpuscular Hemoglobin 31.4 pg (27.0-35.0); Mean Corpuscular Volume 91.5 fL (81-100); NEUTROPHILS % (AUTO) 54.1 % (40-74); Platelet Count 198 bil/L (150-400)
[2017-03-23] MEDS: CLOBAZAM 10 MG PO SCH ×2 (08:48→20:30)
[2017-03-23] MEDS: Insulin LISPRO 300 Unit/3 mL Inj SUBQ SCH ×4 (08:51→22:12)
[2017-03-23] MEDS: Venlafaxine XR 75 mg ER24 Capsule PO SCH (09:01)
--- NOTE | 2017-03-23 14:56 | NUR ---
Nursing Days Pt showing some improvement. He is more visible on the unit, less tremulous and reports his anxiety is "low". He is more social with peers and staff. He did report mild abdominal pain in the LLQ, but felt his pain was tolerable without medication. He requested and received Nicotine replacement. Commit lozenge 2mg po provided along with a 14mg patch. Continue to monitor and support on the unit as needed.
[2017-03-23 15:23] VITALS: BP 112/80; PULSE 78; RESP 16
--- NOTE | 2017-03-23 17:10 | NUR ---
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 Pt called parents multiple times in the morning with help from staff as he struggles to dial on his own. Pt did attend Community Meeting, still struggles with setting a goal. Pt continues to with not eating enough, only eating 30% of breakfast, no lunch and Glucerna drink for dinner. Pt continues to isolate to room, and slept much of the afternoon. Good with ADL's. He was observed every 15 minutes of shift as directed.
--- NOTE | 2017-03-23 19:46 | PCM.PNMED ---
Subjective Date of Service Mar 23, 2017 Subjective Denies any new issues/complaints Exam Vital Signs Vital Sign - Last Date Time Temp Pulse Resp B/P Pulse Ox O2 Delivery O2 Flow Rate FiO2 03/23/17 15:23 36.4 78 16 112/80 03/18/17 20:54 96 Room Air General: Alert, Oriented X3, Cooperative, No Acute Distress Head: Normal Eyes: PERRLA, EOMI, Scleral Anicteric Nose: Mucous Membr Moist/[place] Mouth: Mucous Membr Moist/[place] Neck: Supple Chest & Lungs: Chest Wall Normal, Clear to auscultation & percussion Cardiovascular: Regular Rate/Rhythm Pulses: NL carotid, radial, femoral, DP, PT Abdomen: Non-tender, Non-distended, Normoactive bowel tones, Soft Extremities: No cyanosis/clubbing/edma bilat Neurological: Grossly Neurologically Intact, Normal Speech IVs and Medications Medications Reviewed: Medications were reviewed in detail Lab and Diagnostics Result Diagram: 03/23/1780403/18/171914 Assessment & Plan 26-year-old gentleman with past medical history of type I diabetes mellitus, hypertension, seizure disorder, 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 Hospitalist team being consulted for diabetes control. # Type 1 DM, chronic, stable - Glucose tightly controlled with some hypoglycemia - Was on 20 units nightly, and 15 units in the morning that was increased to 20 units bid - Change Lantus to 18 units bid and followup blood glucose closely - Continue sliding scale # Bright red blood per rectum - Likely secondary to constipation - H/H stable. # HTN, chronic, stable - Continue with Lisinopril # Hypothyroidism, chronic, stable - Continue with Synthroid # Seizure/traumatic brain injury, chronic, stable - Continue with current meds - Consider further neurology consult (by his own neurologist, Dr. Melton) for further adjustment of meds # Mood/impulse control disorder - Management as per psychiatry Tyler Alonzo Mar 23, 2017 19:46
--- NOTE | 2017-03-23 20:59 | NUR ---
Nurses Note evening Patient has been out on the unit this shift for meals, at dinner patient ate 75%.His affect has been slightly brighter with reported less anxiety. Patients' blood sugars have been variable with BS at 1700=70. Patient continues to have difficulty word finding with periods of obvious frustration. Patient enjoyed a card game with his parents this evening.Will continue to encourage adequate food and fluids,continued medication compliance with encouragement to socialize with others. Addendum: 03/23/17 at 2108 by OREN CHOI RN Amended: Links added.
--- NOTE | 2017-03-23 21:23 | PCM.PNPSY ---
Subjective Date of Service Mar 23, 2017 Subjective Patient taking prescribed medications. The patient reports that he is feeling better on current reduced medications. Patient out in day room. Patient denied concerns about parents or dogs. Discussed need to continue medications and slowly taper to avoid side effects. Patient acknowledged. Denies side effects. Sleep: 8 hours Appetite: eating meals with others Suicidal and homicidal ideation: denies Auditory hallucinations: denies Visual hallucinations: denies Other Psychotic Symptoms: poverty of speech Anxiety: 3/10 Depression: 01/06 Current Medications Current Medications Insulin Glargine 15 unit DAILYWM SUBQ Last administered on 03/22/17 08:20; Admin Dose 15 UNIT; Start 03/22/17 at 08:00; Stop 03/22/17 at 18:54; Status DC Insulin Glargine 20 unit DAILYWM SUBQ Last administered on 03/23/17 08:52; Admin Dose 20 UNIT; Start 03/23/17 at 08:00; Stop 03/23/17 at 19:01; Status DC Insulin Glargine 20 unit HS SUBQ Last administered on 03/22/17 21:20; Admin Dose 20 UNIT; Start 03/21/17 at 21:30; Stop 03/23/17 at 19:01; Status DC Nicotine 1 patch DAILY TOPICAL Last administered on 03/23/17 11:33; Admin Dose 1 PATCH; Start 03/23/17 at 11:20 Nicotine Polacrilex 2 mg Q4H PRN BUCCAL Last administered on 03/23/17 11:33; Admin Dose 2 MG; Start 03/23/17 at 11:20 Oxcarbazepine 600 mg HS PO Last administered on 03/21/17 21:42; Admin Dose 600 MG; Start 03/22/17 at 21:00 Venlafaxine HCl 150 mg DAILYWM PO Last administered on 03/23/17 09:01; Admin Dose 150 MG; Start 03/23/17 at 08:00 Mental Status Exam Vital Signs Vital Signs Date Time Temp Pulse Resp B/P Pulse Ox O2 Delivery O2 Flow Rate FiO2 03/23/17 15:23 36.4 78 16 112/80 Appearance: Neat/well groomed Attitude: Pleasant, Cooperative Behavior: Stereotypic movements Affect: Restricted Mood: Euthymic Thought Process/Associations: Other (poverty of speech) Speech Production: Paucity Speech Rate: Lags/Latency Speech Articulation: Other (mild dysarthria) Thought Content: Appropriate Danger to Self/Suicidal Ideati: None Danger to Others: None Hallucinations: Auditory (Denies), Visual (Denies) Consciousness: Alert Orientation: Person, Place, Situation Memory: Short Term Memory (Impaired), Halfway Memory (Impaired) Estimate Intellectual Function: Average Basis for IQ estimate: Word use/vocabulary, Educational history Attention/Concentration & Cogn: Impaired Insight: Limited Judgement: Poor Result Diagram: 03/23/1780403/18/171914 Mental Health Plan Per psychiatric intake, the client is a 27-year-old white male, well known to the [facility] [place] [facility], with 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 He has multiple medical issues including diabetes, hypothyroidism, seizure disorder, and cognitive delay. He is followed by a psychiatrist Dr. Chaudhry, a neurologist, and his family physician. They have all worked to develop a treatment program including structure, therapy, and medications. For unclear reasons he began to have increased confusion over the past several weeks and is now complaining of suicidal ideation, depression, and psychosis. Despite being admitted voluntarily and not requesting discharge, he is not complying with treatment. The patient may benefit from a family meeting to encourage patient to take medications. Discussed case with Dr. Chaudhry regarding possibility of interaction between lithium and haloperidol. Family expressed desire to have medication holiday, but given the number of medications and potential for withdrawal symptoms, reducing some medications may be the best approach for this stay. Overall, patient appears improved today. 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 Veras at [facility]. Traumatic brain injury. Traumatic urethral injury Diabetes mellitus type 1. Hypothyroidism. Hypertension. Hyperlipidemia. 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 Traumatic brain injury with expressive aphasia. [place] IV: Chronic medical illness, limitation of physical function/ independence, cognitive impairment due to head injury. [place] V GAF 30 Treatments 1. The patient is admitted to the inpatient unit and will be provided a safe and secure environment. 2. The patient is denying current active suicidality and is not in need of a one-to-one at this time. 3. The patient is encouraged to participate with group and milieu activities. 4. The patient will be seen by the treatment team on a daily basis to assess symptoms, side effects and response to treatment. 5. The patient is encouraged to take prescribed medications. 6. Discontinue lithium. 7. Continue risperidone 4mg nightly and titrate as needed 8. Awaiting response from outpatient providers 9. Obtain labs in next few days. 10. Medical consult regarding diabetes and hypertension. Appreciate consultation. 11. Anticipated length of stay is 7-10 days. Tim Bravo MD Mar 23, 2017 21:23 Tim Bravo MD Mar 23, 2017 21:23
[2017-03-23] MEDS: OXcarbazepine 300 mg Tablet PO SCH (21:58)
[2017-03-23] MEDS: risperiDONE 2 mg Tablet PO SCH (21:58)
[2017-03-23] MEDS: Insulin GLARgine 100 Unit/mL Syringe SUBQ SCH (22:12)
--- NOTE | 2017-03-24 03:08 | NUR ---
Nursing, NOC shift Patient resting, appears to be sleeping comfortably. Blood sugar at HS 333. recheck @ 0300 to be 80. Skin warm with slight diaphoresis. Slow to waken w/ verbal and soft sternal rub; accepted 120cc orange juice and a string cheese. Fell promptly back to sleep. New order received in PM: Hold [place] until further evaluation. Thyroid and Trileptal level on 03/25. Q15 min safety/room checks thru NOC. CTM for changes. Addendum: 03/24/17 at 0648 by BOBBY RODRIGUEZ RN blood sugar NOC BS rechecked at 0600: 75. 240cc whole milk, string cheese given in room. Skin is slightly diaphoretic. Encouraged patient to get OOB and walk to main day room, which he was able to do. Currently sitting at table eating peanut butter, josue crackers, banana and milk. Report to day RN.
[2017-03-24] MEDS ORDERED: Insulin GLARgine 100 Unit/mL Syringe SUBQ SCH (08:00)
[2017-03-24 08:27] LABS: Magnesium 1.7 mg/dL (1.6-2.6)
[2017-03-24 09:09] VITALS: BP 112/69; PULSE 86; RESP 18
[2017-03-24] MEDS: CLOBAZAM 10 MG PO SCH ×2 (09:14→20:30)
[2017-03-24] MEDS: Insulin LISPRO 300 Unit/3 mL Inj SUBQ SCH ×4 (09:29→21:08)
[2017-03-24] MEDS: Venlafaxine XR 75 mg ER24 Capsule PO SCH (09:29)
--- NOTE | 2017-03-24 14:20 | NUR ---
Nursing Day Pass down of report received from URSULA RN. Rechecked BG @ 0800 and it was 233. Lunch time BG was 270. He ate both breakfast and lunch. He received his regularly scheduled insulin in the morning and sliding scale coverage. Pt reports feeling better with no to little anxiety. He spent time after lunch playing Jenga with a male peer. He presents as brighter, smiling and more engaged on the unit. Thoughts clear and coherent, good eye contact and responsive upon approach. CNCP.
--- NOTE | 2017-03-24 19:05 | PCM.PNMED ---
Subjective Date of Service Mar 24, 2017 Subjective Denies any new issues/complaints Exam Vital Signs Vital Sign - Last Date Time Temp Pulse Resp B/P Pulse Ox O2 Delivery O2 Flow Rate FiO2 03/24/17 09:09 36.9 86 18 112/69 03/18/17 20:54 96 Room Air Exam General: Alert, Cooperative, No Acute Distress Head: Normal Eyes: Scleral Anicteric Nose: Mucous Membr Moist/[place] Mouth: Mucous Membr Moist/[place] Neck: Supple Chest & Lungs: Chest Wall Normal, Clear to auscultation bilat Cardiovascular: Regular Rate/Rhythm Abdomen: Non-tender, Non-distended, Normoactive bowel tones, Soft Neurological: Grossly Neurologically Intact, Normal Speech IVs and Medications Medications Reviewed: Medications were reviewed in detail Lab and Diagnostics Result Diagram: 03/23/1780403/24/17 0735 Assessment & Plan 26-year-old gentleman with past medical history of type I diabetes mellitus, hypertension, seizure disorder, 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 Hospitalist team being consulted for diabetes control. # Type 1 DM, chronic - Glucose labile and poorly controlled - Was on 20 units nightly, and 15 units in the morning that was increased to 20 units bid - Changed Lantus to 18 units bid on 03/23. Will increase AM Lantus to 22 units and continue with 18 qhs - Continue sliding scale # Bright red blood per rectum - Likely secondary to constipation - H/H stable. # HTN, chronic, stable - Continue with Lisinopril # Hypothyroidism, chronic, stable - Continue with Synthroid # Seizure/traumatic brain injury, chronic, stable - Continue with current meds - Consider further neurology consult (by his own neurologist, Dr. Melton) for further adjustment of meds # Mood/impulse control disorder - Management as per psychiatry Tyler Alonzo Mar 24, 2017 19:05
[2017-03-24] MEDS: Insulin GLARgine 100 Unit/mL Syringe SUBQ SCH (21:13)
[2017-03-24] MEDS: risperiDONE 2 mg Tablet PO SCH (21:14)
[2017-03-24] MEDS: OXcarbazepine 300 mg Tablet PO SCH (21:14)
--- NOTE | 2017-03-24 21:40 | PCM.PNPSY ---
Subjective Date of Service Mar 24, 2017 Subjective Patient taking prescribed medications. The patient reports that his mood is "pretty good." Patient has difficulty rating mood or answering orientation questions due to expressive aphasia. The patient reports that he is feeling better on current reduced medications. Patient limiting time in the day room due to noise and difficulty tolerating stimulation. Patient reports he will be having a visit with his parents this evening. Denies side effects. Sleep: "really good" Appetite: "okay" out for meals Suicidal and homicidal ideation: denies Auditory hallucinations: denies Visual hallucinations: denies Other Psychotic Symptoms: poverty of speech Anxiety: "really good" Depression: 0/10 Current Medications Current Medications Insulin Glargine 18 unit DAILYWM SUBQ Last administered on 03/24/17 09:28; Admin Dose 18 UNIT; Start 03/24/17 at 08:00; Stop 03/24/17 at 18:59; Status DC Insulin Glargine 18 unit HS SUBQ Last administered on 03/24/17 21:13; Admin Dose 18 UNIT; Start 03/23/17 at 21:00 Insulin Glargine 20 unit DAILYWM SUBQ Last administered on 03/23/17 08:52; Admin Dose 20 UNIT; Start 03/23/17 at 08:00; Stop 03/23/17 at 19:01; Status DC Nicotine 1 patch DAILY TOPICAL Last administered on 03/24/17 09:27; Admin Dose 1 PATCH; Start 03/23/17 at 11:20 Nicotine Polacrilex 2 mg Q4H PRN BUCCAL Last administered on 03/23/17 11:33; Admin Dose 2 MG; Start 03/23/17 at 11:20 Venlafaxine HCl 150 mg DAILYWM PO Last administered on 03/24/17 09:29; Admin Dose 150 MG; Start 03/23/17 at 08:00 Mental Status Exam Appearance: Neat/well groomed Attitude: Pleasant, Cooperative Behavior: Stereotypic movements Affect: Well Modulated/Appropriate Mood: Euthymic Thought Process/Associations: Other (poverty of speech) Speech Production: Paucity Speech Rate: Lags/Latency Speech Articulation: Other (mild dysarthria) Thought Content: Appropriate Danger to Self/Suicidal Ideati: None Danger to Others: None Hallucinations: Auditory (Denies), Visual (Denies) Consciousness: Alert Orientation: Person, Place, Situation Memory: Short Term Memory (Impaired), Detention Memory (Impaired) Estimate Intellectual Function: Average Basis for IQ estimate: Word use/vocabulary, Educational history Attention/Concentration & Cogn: Impaired Insight: Limited Judgement: Poor Result Diagram: 03/23/17 0805 03/24/17 0735 Mental Health Plan Per psychiatric intake, the client is a 27-year-old white male, well known to the [facility], with 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 He has multiple medical issues including diabetes, hypothyroidism, seizure disorder, and cognitive delay. He is followed by a psychiatrist Dr. Chaudhry, a neurologist, and his family physician. For unclear reasons he began to have increased confusion over the past several weeks and is now complaining of suicidal ideation, depression, and psychosis. Despite being admitted voluntarily and not requesting discharge, he initially did not comply with treatment. Discussed case with Dr. Chaudhry regarding possibility of interaction between lithium and haloperidol. Family expressed desire to have medication holiday, but given the number of medications and potential for withdrawal symptoms, reducing some medications may be the best approach for this stay. The patient was taken off Haldol and [place] and placed on risperidone. Lamotrigine had to be discontinued due to persistent refusal. Effexor reduced to 150mg daily. Overall, patient appears improved today with fairly bright affect. No outbursts per patient/staff. 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 Veras at [facility]. Traumatic brain injury. Traumatic urethral injury Diabetes mellitus type 1. Hypothyroidism. Hypertension. Hyperlipidemia. 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 Traumatic brain injury with expressive aphasia. [place] IV: Chronic medical illness, limitation of physical function/ independence, cognitive impairment due to head injury. [place] V GAF 30 Treatments 1. The patient is admitted to the inpatient unit and will be provided a safe and secure environment. 2. The patient is denying current active suicidality and is not in need of a one-to-one at this time. 3. The patient is encouraged to participate with group and milieu activities. 4. The patient will be seen by the treatment team on a daily basis to assess symptoms, side effects and response to treatment. 5. The patient is encouraged to take prescribed medications. 6. Continue risperidone 4mg nightly and titrate as needed 7. Obtain labs in am. 8. Medical consult regarding diabetes and hypertension. Appreciate consultation. Consider reduction of glargine if nocturnal hypoglycemia occurs. 9. Anticipated length of stay is 7-10 days. Tim Bravo MD Mar 24, 2017 21:40 Tmi Bravo MD Mar 24, 2017 21:40
--- NOTE | 2017-03-25 05:30 | NUR ---
nursing, nights, 11-7 s/o- has appeared to sleep after 2144. awake briefly for blood sugar check at 0300. yx=[id number]. assessed q 15 minutes. a- no apparent distress. p- monitor behavior/emotional state, quality, times and amount of sleep, use and effect of medication. mohinder
[2017-03-25] MEDS: Insulin LISPRO 300 Unit/3 mL Inj SUBQ SCH ×4 (08:00→20:51)
[2017-03-25] MEDS ORDERED: Insulin GLARgine 100 Unit/mL Syringe SUBQ SCH (08:00)
[2017-03-25 08:02] LABS: BASOPHILS % (AUTO) 0.9 % (0-3); MONOCYTES % (AUTO) 10.9 % (4-12); Mean Corpuscular Hemoglobin 31.3 pg (27.0-35.0); Mean Corpuscular Volume 92.6 fL (81-100); NEUTROPHILS % (AUTO) 52.5 % (40-74); Platelet Count 171 bil/L (150-400)
[2017-03-25] MEDS: CLOBAZAM 10 MG PO SCH ×2 (09:14→21:08)
[2017-03-25] MEDS: Venlafaxine XR 75 mg ER24 Capsule PO SCH (09:43)
--- NOTE | 2017-03-25 13:28 | NUR ---
Nursing Days Pt continues to do well on the unit. Morning BG 164, 1 unit of extra coverage provided. Noon BG 290, 3 units coverage provided. He remains calm, pleasant and cooperative. Taking medication as offered. No c/o anxiety this shift. No distress noted. Continue to monitor and support on the unit as needed.
[2017-03-25 14:25] VITALS: BP 117/77; PULSE 63; RESP 16
--- NOTE | 2017-03-25 16:15 | NUR ---
Observations [id number] Pt observed to be much more active on unit, attending morning meeting and eating meals. Pt stated that his goal for the day was to "eat more food." Pt also attended snack. Has been eating 75% of meals. Pt also stated that he is feeling better- seen spending more time in common areas, smiling and laughing. Pt also able to better communicate with staff and peers as well. Pt good with ADL's, was observed every 15 minutes as directed.
--- NOTE | 2017-03-25 17:45 | PCM.PNMED ---
Subjective Date of Service Mar 25, 2017 Subjective Denies any new issues/complaints Exam Vital Signs Vital Sign - Last Date Time Temp Pulse Resp B/P Pulse Ox O2 Delivery O2 Flow Rate FiO2 03/25/17 14:25 36.2 63 16 117/77 Exam General: Alert, Cooperative, No Acute Distress Head: Normal Eyes: Scleral Anicteric Nose: Mucous Membr Moist/[place] Mouth: Mucous Membr Moist/[place] Neck: Supple Chest & Lungs: Chest Wall Normal, Clear to auscultation bilat Cardiovascular: Regular Rate/Rhythm Abdomen: Non-tender, Non-distended, Normoactive bowel tones, Soft Neurological: Grossly Neurologically Intact, Normal Speech IVs and Medications Medications Reviewed: Medications were reviewed in detail Lab and Diagnostics Result Diagram: 03/25/1773403/25/17734 Assessment & Plan 26-year-old gentleman with past medical history of type I diabetes mellitus, hypertension, seizure disorder, 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 Hospitalist team being consulted for diabetes control. # Type 1 DM, chronic - Glucose labile and poorly controlled - Was on 20 units nightly, and 15 units in the morning that was increased to 20 units bid - Changed Lantus to 18 units bid on 03/23. Will increase AM Lantus to 24 units and continue with 18 qhs - Continue sliding scale # Bright red blood per rectum - Likely secondary to constipation - H/H stable. # HTN, chronic, stable - Continue with Lisinopril # Hypothyroidism, chronic, stable - Continue with Synthroid # Seizure/traumatic brain injury, chronic, stable - Continue with current meds - Consider further neurology consult (by his own neurologist, Dr. Melton) for further adjustment of meds # Mood/impulse control disorder - Management as per psychiatry Tyler Alonzo Mar 25, 2017 17:45
--- NOTE | 2017-03-25 18:34 | NUR ---
Nurses Note Evening Patient has been out on the unit at interval. His affect has been bright with a cheerful mood when approached, He denied troubled thoughts or voices. Patient is eager to be discharged home. His BS at 1730 =238 with Lispro 2units as coverage. Patient has memorized a sliding scale schedule ordered by his business strategist and is assisted by his mother if needed. Patient will be monitored q 15min. for safety and support,will encourage continued medication compliance. Addendum: 03/25/17 at 1842 by OREN CHOI RN Amended: Links added.
--- NOTE | 2017-03-25 18:43 | NUR ---
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 He denies any S/I and H/I. He denies auditory and visual hallucinations. Depression is 0/10 and anxiety is 0/10. This clinical writer spoke with patient's mother and she will access patient and let staff know how she thinks patient is doing. A: Patient is cooperative, improving, hopeful, fair insight, fair judgment. P: Follow care plan and coordinate with outpatient providers.
[2017-03-25] MEDS: Insulin GLARgine 100 Unit/mL Syringe SUBQ SCH (20:53)
[2017-03-25] MEDS: risperiDONE 2 mg Tablet PO SCH (20:55)
[2017-03-25] MEDS: OXcarbazepine 300 mg Tablet PO SCH (20:57)
--- NOTE | 2017-03-25 21:36 | PCM.PNPSY ---
Subjective Date of Service Mar 25, 2017 Subjective Patient taking prescribed medications. The patient reports that his mood is "good." The patient reports that he is feeling better on current reduced medications. He denies having any anger outbursts or mood instability. Denies side effects. Sleep: "good" Appetite: "good" Suicidal and homicidal ideation: denies Auditory hallucinations: denies Visual hallucinations: denies Other Psychotic Symptoms: poverty of speech Anxiety: 0/10 Depression: 0/10 Current Medications Current Medications Insulin Glargine 18 unit DAILYWM SUBQ Last administered on 03/24/17 09:28; Admin Dose 18 UNIT; Start 03/24/17 at 08:00; Stop 03/24/17 at 18:59; Status DC Insulin Glargine 22 unit DAILYWM SUBQ Last administered on 03/25/17 09:47; Admin Dose 22 UNIT; Start 03/25/17 at 08:00; Stop 03/25/17 at 17:46; Status DC Mental Status Exam Vital Signs Vital Signs Date Time Temp Pulse Resp B/P Pulse Ox O2 Delivery O2 Flow Rate FiO2 03/25/17 14:25 36.2 63 16 117/77 Appearance: Neat/well groomed Attitude: Pleasant, Cooperative Behavior: No unusual behavior Affect: Well Modulated/Appropriate Mood: Euthymic Thought Process/Associations: Other (poverty of speech) Speech Production: Paucity Speech Rate: Lags/Latency Speech Articulation: Other (mild dysarthria) Thought Content: Appropriate Danger to Self/Suicidal Ideati: None Danger to Others: None Hallucinations: Auditory (Denies), Visual (Denies) Consciousness: Alert Orientation: Person, Place, Situation Memory: Short Term Memory (Impaired), Detention Memory (Impaired) Estimate Intellectual Function: Average Basis for IQ estimate: Word use/vocabulary, Educational history Attention/Concentration & Cogn: Impaired Insight: Limited Judgement: Limited Result Diagram: 03/25/17 0735 03/25/17 0735 Mental Health Plan Per psychiatric intake, the client is a 27-year-old white male, [facility], with 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 He has multiple medical issues including diabetes, hypothyroidism, seizure disorder, and cognitive delay. He is followed by a psychiatrist Dr. Chaudhry, a neurologist, and his family physician. For unclear reasons he began to have increased confusion over the past several weeks and is now complaining of suicidal ideation, depression, and psychosis. Despite being admitted voluntarily and not requesting discharge, he initially did not comply with treatment. Discussed case with Dr. Chaudhry regarding possibility of interaction between lithium and haloperidol. Family expressed desire to have medication holiday, but given the number of medications and potential for withdrawal symptoms, reducing some medications may be the best approach for this stay. The patient was taken off Haldol and [place] and placed on risperidone. Lamotrigine had to be discontinued due to persistent refusal. Effexor reduced to 150mg daily. The patient continues to report feeling better on current medication; patient is unsure of the opinion of his parents. Message left with parents for feedback. If continues stable, appropriate for discharge. No outbursts per patient/staff. 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 Veras at [facility]. Traumatic brain injury. Traumatic urethral injury Diabetes mellitus type 1. Hypothyroidism. Hypertension. Hyperlipidemia. 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 Traumatic brain injury with expressive aphasia. [place] IV: Chronic medical illness, limitation of physical function/ independence, cognitive impairment due to head injury. [place] V GAF 40 Treatments 1. The patient is admitted to the inpatient unit and will be provided a safe and secure environment. 2. The patient is denying current active suicidality and is not in need of a one-to-one at this time. 3. The patient is encouraged to participate with group and milieu activities. 4. The patient will be seen by the treatment team on a daily basis to assess symptoms, side effects and response to treatment. 5. The patient is encouraged to take prescribed medications. 6. Continue risperidone 4mg nightly and titrate as needed 7. Await oxcarbazepine level 8. Medical consult regarding diabetes and hypertension. Appreciate consultation. Consider reduction of glargine if nocturnal hypoglycemia occurs. 9. Anticipated length of stay is 1-2 additional days. Tim Bravo MD Mar 25, 2017 21:36
[2017-03-26 03:11] LABS: Free Thyroxine Index 1.5 (1.2-4.9); Thyroxine (T4) 5.5 ug/dL (4.5-12.0)
--- NOTE | 2017-03-26 04:49 | NUR ---
nursing, nights, 11-7 s- oh ok. that will good. thank you. o- has appeared to sleep after 2129. bs=71 at 0345. received a string cheese and 120 ml of apple juice. easily returned to sleep. assessed q 15 minutes. a- no apparent distress. p- monitor behavior/emotional state, quality, times and amount of sleep, use and effect of medication. mohinder
[2017-03-26] MEDS: Insulin LISPRO 300 Unit/3 mL Inj SUBQ SCH ×4 (08:00→21:16)
[2017-03-26] MEDS ORDERED: Insulin GLARgine 100 Unit/mL Syringe SUBQ SCH (08:00)
[2017-03-26] MEDS: CLOBAZAM 10 MG PO SCH ×2 (08:15→21:06)
[2017-03-26] MEDS: Venlafaxine XR 75 mg ER24 Capsule PO SCH (08:17)
[2017-03-26 11:20] VITALS: BP 104/65; PULSE 73; RESP 16
--- NOTE | 2017-03-26 11:26 | NUR ---
NURS NOTE DAY Mood: "My mood is a five." Denies anxiety and depression. Affect: Restricted Behavior: Out in day room much of shift. Actively interacted with therapy dog. Appropriate, cooperative. Thought Content/Process: "It's the a drug I need to take that make me go blublublub." Linear; linked; at times, bizarre. Denies SI, HI. Denies AH, VH. NURS NOTE/PRN: Blood glucose 130 (breakfast, no correctional insulin required per sliding scale), 263 (lunch, will give 4 units at 1140). Med compliant. Addendum: 03/26/17 at 1213 by LEYDI WILLSON RN Administered 4 units insulin.
--- NOTE | 2017-03-26 19:03 | PCM.PNMED ---
Subjective Date of Service Mar 26, 2017 Subjective Denies any new issues/complaints Exam Vital Signs Vital Sign - Last Date Time Temp Pulse Resp B/P Pulse Ox O2 Delivery O2 Flow Rate FiO2 03/26/17 11:20 36.4 73 16 104/65 Exam General: Alert, Cooperative, No Acute Distress Head: Normal Eyes: Scleral Anicteric Nose: Mucous Membr Moist/[place] Mouth: Mucous Membr Moist/[place] Neck: Supple Chest & Lungs: Chest Wall Normal, Clear to auscultation bilat Cardiovascular: Regular Rate/Rhythm Abdomen: Non-tender, Non-distended, Normoactive bowel tones, Soft Neurological: Grossly Neurologically Intact, Normal Speech IVs and Medications Medications Reviewed: Medications were reviewed in detail Lab and Diagnostics Result Diagram: 03/25/1773403/25/17734 Assessment & Plan 26-year-old gentleman with past medical history of type I diabetes mellitus, hypertension, seizure disorder, 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 Hospitalist team being consulted for diabetes control. # Type 1 DM, chronic - Glucose labile and poorly controlled - Was on 20 units nightly, and 15 units in the morning that was increased to 20 units bid - Changed Lantus to 18 units bid on 03/23. Will increase AM Lantus to 26 units and continue with 18 qhs - Continue sliding scale # Bright red blood per rectum - Likely secondary to constipation - H/H stable. # HTN, chronic, stable - Continue with Lisinopril # Hypothyroidism, chronic, stable - Continue with Synthroid # Seizure/traumatic brain injury, chronic, stable - Continue with current meds - Consider further neurology consult (by his own neurologist, Dr. Melton) for further adjustment of meds # Mood/impulse control disorder - Management as per psychiatry Tyler Alonzo Mar 26, 2017 19:03
[2017-03-26] MEDS: risperiDONE 2 mg Tablet PO SCH (21:08)
[2017-03-26] MEDS: OXcarbazepine 300 mg Tablet PO SCH (21:08)
[2017-03-26] MEDS: Insulin GLARgine 100 Unit/mL Syringe SUBQ SCH (21:16)
--- NOTE | 2017-03-26 21:27 | NUR ---
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 He denies any S/I and H/I. He denies auditory and visual hallucinations. Depression is 0/10 and anxiety is 0/10. This commercial underwriter spoke with patient's mother and she agrees with the doctor that the patient should discharge 03/28/17. A: Patient is cooperative, improving, hopeful, fair insight, fair judgment. P: Follow care plan and coordinate with outpatient providers.
--- NOTE | 2017-03-26 22:39 | PCM.PNPSY ---
Subjective Date of Service Mar 26, 2017 Subjective Patient taking prescribed medications. The patient reports that his mood is "good." The patient was noted to be patiently waiting for staff to let him into the shower. The patient reports that he is feeling better on current reduced medications. He denies having any anger outbursts or mood instability. Denies side effects. Sleep: "good" Appetite: "good" Suicidal and homicidal ideation: denies Auditory hallucinations: denies Visual hallucinations: denies Other Psychotic Symptoms: poverty of speech Anxiety: 0/10 Depression: 0/10 Current Medications Current Medications Insulin Glargine 22 unit DAILYWM SUBQ Last administered on 03/25/17 09:47; Admin Dose 22 UNIT; Start 03/25/17 at 08:00; Stop 03/25/17 at 17:46; Status DC Insulin Glargine 24 unit DAILYWM SUBQ Last administered on 03/26/17 08:18; Admin Dose 24 UNIT; Start 03/26/17 at 08:00; Stop 03/26/17 at 19:05; Status DC Mental Status Exam Appearance: Neat/well groomed Attitude: Pleasant, Cooperative Behavior: No unusual behavior Affect: Well Modulated/Appropriate Mood: Euthymic Thought Process/Associations: Other (poverty of speech) Speech Production: Paucity Speech Rate: Lags/Latency Speech Articulation: Other (mild dysarthria) Thought Content: Appropriate Danger to Self/Suicidal Ideati: None Danger to Others: None Hallucinations: Auditory (Denies), Visual (Denies) Consciousness: Alert Orientation: Person, Place, Situation Memory: Short Term Memory (Impaired), [place] Memory (Impaired) Estimate Intellectual Function: Average Basis for IQ estimate: Word use/vocabulary, Educational history Attention/Concentration & Cogn: Impaired Insight: Limited Judgement: Limited Result Diagram: 03/25/17 0735 03/25/17 0735 Mental Health Plan Per psychiatric intake, the client is a 27-year-old white male, [facility], with 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 He has multiple medical issues including diabetes, hypothyroidism, seizure disorder, and cognitive delay. He is followed by a psychiatrist Dr. Chaudhry, a neurologist, and his family physician. For unclear reasons he began to have increased confusion over the past several weeks and is now complaining of suicidal ideation, depression, and psychosis. Despite being admitted voluntarily and not requesting discharge, he initially did not comply with treatment. Discussed case with Dr. Chaudhry regarding possibility of interaction between lithium and haloperidol. Family expressed desire to have medication holiday, but given the number of medications and potential for withdrawal symptoms, reducing some medications may be the best approach for this stay. The patient was taken off Haldol and [place] and placed on risperidone. Lamotrigine had to be discontinued due to persistent refusal. Effexor reduced to 150mg daily. The patient continues to report feeling better on current medication; patient is unsure of the opinion of his parents. No outbursts per patient/staff. According to the patient's mother, the patient has been increasingly confused and agitated over the last few months/years. Despite this, he has been able to act fairly stable when present with outpatient psychiatrist despite difficulties at home. Family concerned that patient has only exhibited improved mood over last few days and exhibited tearful outburst last night during visit. Oxcarbazepine level also pending at this time which is expected to be back late Wednesday or Wednesday. Discussed with family and patient that pending family visit tonight, oxcarbazepine levels and behavior on unit, patient could be discharged over weekend. Patient has appointment with Dr. Chaudhry on Wednesday03/29/17 at 2pm. 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 Veras at [facility]. Traumatic brain injury. Traumatic urethral injury Diabetes mellitus type 1. Hypothyroidism. Hypertension. Hyperlipidemia. 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 Traumatic brain injury with expressive aphasia. [place] IV: Chronic medical illness, limitation of physical function/ independence, cognitive impairment due to head injury. [place] V GAF 40 Treatments 1. The patient is admitted to the inpatient unit and will be provided a safe and secure environment. 2. The patient is denying current active suicidality and is not in need of a one-to-one at this time. 3. The patient is encouraged to participate with group and milieu activities. 4. The patient will be seen by the treatment team on a daily basis to assess symptoms, side effects and response to treatment. 5. The patient is encouraged to take prescribed medications. 6. Continue risperidone 4mg nightly and titrate as needed 7. Await oxcarbazepine level 8. Medical consult regarding diabetes and hypertension. Appreciate consultation. Consider reduction of glargine if nocturnal hypoglycemia occurs. 9. Anticipated length of stay is 1-2 additional days. Tim Bravo MD Mar 26, 2017 22:39
--- NOTE | 2017-03-26 23:20 | NUR ---
Observations 1900 to 0700 Pt attended wrap up group. Pt ate a snack. Pt had visitors at start of shift and was observed interacting with peers during free time. Pt maintained behavioral control and showed no signs of abnormal behavior. Pt is currently resting quietly in bed. Staff completed 15 min close observations as ordered.
--- NOTE | 2017-03-27 06:06 | NUR ---
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 Pt had a bg level 174 at HS and given routine Lantus 18 units also a snack before bed, but he did not finish it all. Pt bg level 33 without s/sx of hypo/hyperglycemia noted. Pt stated, "Im perfectly fine" during assessment. Snack given and patient alert and responsive. Will recheck bg level in one hour. Bg level 91 at recheck without s/sx of hypo/hyperglycemia noted. Pt slept 6.25hrs. Continue to monitor bg levels, mood changes, emotional wellbeing, and q15min checks for safety. Care continues.
[2017-03-27] MEDS ORDERED: Insulin GLARgine 100 Unit/mL Syringe SUBQ SCH (08:00)
[2017-03-27] MEDS: Insulin LISPRO 300 Unit/3 mL Inj SUBQ SCH ×5 (08:00→21:30)
[2017-03-27] MEDS: CLOBAZAM 10 MG PO SCH ×3 (08:30→21:16)
[2017-03-27] MEDS: Venlafaxine XR 75 mg ER24 Capsule PO SCH (09:12)
--- NOTE | 2017-03-27 12:46 | PCM.PNPSY ---
Subjective Date of Service Mar 27, 2017 Subjective I spent 30 minutes both reviewing treatment plan with our clinical team, interviewing the patient and providing supportive/educational psychotherapy. I spent more than 50% of the time counseling the patient. I reviewed the treatment plan with the him and discussed options available including the potential risks, benefits and side effects. Doug reports an improvement in thought organization and mood stability. Staff reports that he has been isolating but attempting to participate in one-to -one unit and group activities. He slept 6 hours and denies manic or psychotic symptoms review. He denies medication side effects. He was able to identify his medications and what they were used to treat. Current Medications Current Medications Insulin Glargine 24 unit DAILYWM SUBQ Last administered on 03/26/17t 08:18; Admin Dose 24 UNIT; Start 03/26/17 at 08:00; Stop 03/26/17 at 19:05; Status DC Mental Status Exam Appearance: Neat/well groomed Attitude: Pleasant, Cooperative Behavior: No unusual behavior Affect: Well Modulated/Appropriate Mood: Euthymic Thought Process/Associations: Other (poverty of speech) Speech Production: Paucity Speech Rate: Lags/Latency Speech Articulation: Other (mild dysarthria) Thought Content: Appropriate Danger to Self/Suicidal Ideati: None Danger to Others: None Consciousness: Alert Orientation: Person, Place, Situation Memory: Short Term Memory (Impaired), [place] Memory (Impaired) Estimate Intellectual Function: Average Basis for IQ estimate: Word use/vocabulary, Educational history Attention/Concentration & Cogn: Impaired Insight: Limited Judgement: Limited Result Diagram: 03/25/17 0735 03/25/17 0735 Mental Health Plan Doug is a 27-year-old white male, well known to the [facility], with 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 He has multiple medical issues including diabetes, hypothyroidism, seizure disorder , and cognitive delay. He is followed by a psychiatrist Dr. Chaudhry, a neurologist, and his family physician. For unclear reasons he began to have increased confusion over the past several weeks and is now complaining of suicidal ideation, depression, and psychosis. Despite being admitted voluntarily and not requesting discharge, he initially did not comply with treatment. Discussed case with Dr. Chaudhry regarding possibility of interaction between lithium and haloperidol. Family expressed desire to have medication holiday, but given the number of medications and potential for withdrawal symptoms, reducing some medications may be the best approach for this stay. The patient was taken off Haldol and [place] and placed on risperidone. Lamotrigine had to be discontinued due to persistent refusal. Effexor reduced to 150mg daily. The patient continues to report feeling better on current medication; patient is unsure of the opinion of his parents. No outbursts per patient/staff. According to the patient's mother, the patient has been increasingly confused and agitated over the last few months/years. Despite this , he has been able to act fairly stable when present with outpatient psychiatrist despite difficulties at home. Family concerned that patient has only exhibited improved mood over last few days and exhibited tearful outburst last night during visit. Oxcarbazepine level also pending at this time which is expected to be back late Wednesday or Wednesday. Discussed with family and patient that pending family visit tonight, oxcarbazepine levels and behavior on unit, patient could be discharged over weekend. Patient has appointment with Dr. Chaudhry on Wednesday03/29/17 at 2pm. 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 Veras at [facility]. Traumatic brain injury. Traumatic urethral injury Diabetes mellitus type 1. Hypothyroidism. Hypertension. Hyperlipidemia. 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 Traumatic brain injury with expressive aphasia. [place] IV: Chronic medical illness, limitation of physical function/ independence, cognitive impairment due to head injury. [place] V GAF 40 Treatments 1. The patient is admitted to the inpatient unit and will be provided a safe and secure environment. 2. The patient is denying current active suicidality and is not in need of a one-to-one at this time. 3. The patient is encouraged to participate with group and milieu activities. 4. The patient will be seen by the treatment team on a daily basis to assess symptoms, side effects and response to treatment. 5. The patient is encouraged to take prescribed medications. 6. Continue risperidone 4mg nightly and titrate as needed 7. Await oxcarbazepine level 8. Medical consult regarding diabetes and hypertension. Appreciate consultation. Consider reduction of glargine if nocturnal hypoglycemia occurs. 9. Anticipated length of stay is Mini [facility] if she is available 2 additional days. Elijah Rodriguez MD Mar 27, 2017 12:46
[2017-03-27 15:32] VITALS: BP 113/76; PULSE 99; RESP 15
--- NOTE | 2017-03-27 18:10 | PCM.PNMED ---
Subjective Date of Service Mar 27, 2017 Subjective Denies any new issues/complaints Exam Vital Signs Vital Sign - Last Date Time Temp Pulse Resp B/P Pulse Ox O2 Delivery O2 Flow Rate FiO2 03/27/17 15:32 36.4 99 15 113/76 Exam General: Alert, Cooperative, No Acute Distress Head: Normal Eyes: Scleral Anicteric Nose: Mucous Membr Moist/[place] Mouth: Mucous Membr Moist/[place] Neck: Supple Chest & Lungs: Chest Wall Normal, Clear to auscultation bilat Cardiovascular: Regular Rate/Rhythm Abdomen: Non-tender, Non-distended, Normoactive bowel tones, Soft Neurological: Grossly Neurologically Intact, Normal Speech IVs and Medications Medications Reviewed: Medications were reviewed in detail Lab and Diagnostics Result Diagram: 03/25/1773403/25/17734 Assessment & Plan 26-year-old gentleman with past medical history of type I diabetes mellitus, hypertension, seizure disorder, 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 Hospitalist team being consulted for diabetes control. # Type 1 DM, chronic - Glucose labile and poorly controlled - Was on 20 units nightly, and 15 units in the morning that was increased to 20 units bid - AM Lantus to 22 units and continue with 18 qhs - Continue sliding scale # Bright red blood per rectum - Likely secondary to constipation - H/H stable. # HTN, chronic, stable - Continue with Lisinopril # Hypothyroidism, chronic, stable - Continue with Synthroid # Seizure/traumatic brain injury, chronic, stable - Continue with current meds - Consider further neurology consult (by his own neurologist, Dr. Melton) for further adjustment of meds # Mood/impulse control disorder - Management as per psychiatry Dispo: Per primary psychiatry team. Patient is cleared for discharge from medical standpoint. When ready for discharge recommend that he would be continued on his home dose insulin with strong recommendation for close followup with primary care provider for further titration of insulin and management of his diabetes or further referral to endocrinology as outpatient. Tyler Alonzo Mar 27, 2017 18:10
--- NOTE | 2017-03-27 18:53 | NUR ---
Observations 0700 - 1900 Pt affect and mood was flat, brighter when engaged, isolative and content. Pt was in his room most of the shift. Pt was pleasant, polite and cooperative when approached. Pt maintained behavior throughout the shift. Pt speech and eye contact ok. Pt was offered snack but he declined. Pt attended meals in D.R and ate most of his breakfast and lunch. Pt didn't eat dinner but he did drink his glucerna supplement drink and milk that was on his tray. Pt is currently visiting with his parents and it appears to be going well. Pt was observed every 15 minutes through the shift as ordered.
--- NOTE | 2017-03-27 19:15 | NUR ---
[id number]. nurs. S/O: Pt stating that he is looking forward to getting home and did not want any further delays. Pt's mother will be here at 1030 tomorrow. Pt stating bored on unit watching soccer stating he did not like it but it was something to do. Pt not identifying other home interests. Pt stating that he could not rate his depression level and stating not anxious. Pt eating supplements rather than dinner meal and Dr Alonzo mtg with pt to review BS. Pt visiting with parents this guillaume and enjoying visit with smiling affect. P:CNCP
[2017-03-27] MEDS: risperiDONE 2 mg Tablet PO SCH (21:16)
[2017-03-27] MEDS: OXcarbazepine 300 mg Tablet PO SCH (21:16)
[2017-03-27] MEDS: Insulin GLARgine 100 Unit/mL Syringe SUBQ SCH (21:22)
--- NOTE | 2017-03-28 06:23 | NUR ---
[id number] Nursing Note Sleep=6.75+ hrs fragmented sleep S: "I don't understand why my blood sugar goes down if I don't eat". "When I was a kid, I took 5, and it just went up and up and up". O: Patient having difficulty understanding relationship between intake, insulin and blood sugar control. Patient interacting appropriately with staff, does not appear to have much interaction with peers. Decreased appetite. Did not eat dinner, had an Ensure and a milk only. As a bedtime snack, patient ate half of a sherbet and a milk, but refused additional intake. A: Looking forward to discharge. Disorganized, poor insight, poor impulse control. P: Monitor for safety and response to treatment. Follow plan of care. Addendum: 03/28/17 at 0623 by BONNIE GONZALEZ RN Addendum Parents voicing concern that patient reports he is not hearing voices here-that he only hears voices at home. Parents requesting suggestions if the voices return. Parents also concerned that Doug is reporting that he is not sleeping at night. Parents told that we cannot treat symptoms that patient is not currently having-if the voices return when patient is home, he will need to follow up with his outpatient provider. Parent reassured that patient checks are done Q 15 min and patient appears asleep.
[2017-03-28] MEDS: Insulin LISPRO 300 Unit/3 mL Inj SUBQ SCH ×2 (08:00→12:00)
[2017-03-28] MEDS ORDERED: Insulin GLARgine 100 Unit/mL Syringe SUBQ SCH (08:00)
[2017-03-28] MEDS: Venlafaxine XR 75 mg ER24 Capsule PO SCH (08:16)
[2017-03-28] MEDS: CLOBAZAM 10 MG PO SCH (08:58)
[2017-03-28] MEDS ORDERED: RISP2TAB21 PO (10:34)
[2017-03-28] MEDS ORDERED: INSU100V7 SUBQ ×2 (10:34)
[2017-03-28] MEDS ORDERED: VENL75CA PO (10:34)
--- NOTE | 2017-03-28 10:38 | PCM.DIMED ---
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 Veras at [facility]. Traumatic brain injury. Traumatic urethral injury Diabetes mellitus type 1. Hypothyroidism. Hypertension. Hyperlipidemia. 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 Traumatic brain injury with expressive aphasia. [place] IV: Chronic medical illness, limitation of physical function/ independence, cognitive impairment due to head injury. [place] V GAF 45 Medication Instructions Additional med instructions I Strongly encouraged patient to follow up with outpatient care: 1-Recommended patient takes medication as prescribed and not alter this unless under the direct care of a provider: insulin [id number] units per milliliter vial 22 units subcutaneous daily Insulin glargine 100 units per milliliter vial 18 units subcutaneous at bedtime Levothyroxine 25 mg daily Pepcid 20 mg daily Docusate sodium 250 mg daily Lisinopril 20 mg daily Venlafaxine ER 75 mg tablets 2 tablets every morning Topamax ER 100 mg at bedtime Risperdal 4 mg at bedtime [place] carbonate 60 mg at bedtime Lamictal 300 mg every morning 200 mg at bedtime Haldol 5 mg every morning 10 mg at bedtime Oxcarbamazepine 400 mg every morning 600 mg at bedtime Clobazam 10 mg twice a day 2-Recommend client refrain from recreational drugs and alcohol while taking psychiatric medications. Diet Discharge Diet: Diabetic Activity Discharge Activity: Limited until seen by PCP Call your provider Call your provider for: Fever or Chills, Bleeding, Vomitting Patient Instructions Follow-up plan Plan follow-up appointment per bottle caser AJ. Client to follow-up with regular team including psychiatrist Dr. Guadarrama in [place]. Follow-up with PCP in: 2 weeks Elijah Rodriguez MD Mar 28, 2017 10:38
--- NOTE | 2017-03-28 11:12 | DIS ---
[address] [address] DISCHARGE SUMMARY PATIENT: MAY GRACIA : 1990 MR#: [id number] ADMIT: 03/19/2017 JOB ID: [id number] DIS: DISCHARGE DATE: 03/28/2017 IDENTIFICATION: May is a 27-year-old white male with cognitive delay and an expressive aphasia related to a traumatic brain injury approximately seven years ago. He currently lives with his parents in [place] and is followed by Dr. Chaudhry a psychiatrist in [place]. REASON FOR ADMISSION: Client presented to the ER with his mother for suicidal ideation and depression. SUMMARY OF PRESENT ILLNESS: The patient is a 27-year-old, white male, well known to the [facility] with cognitive delay related to traumatic brain injury approximately seven years ago. Struggles with multiple medical illnesses including brittle diabetes, hypothyroidism, seizure disorder, and cognitive delay. He is followed by psychiatrist Dr. Chaudhry, a neurologist, and his family physician. They have all worked to develop a treatment plan including structure therapy and a medication regimen that has enabled him to remain in his parent's home and relatively stable. Prior to admission for unclear reasons he began to have increased confusion and then was complaining of suicidal ideation, depression, and psychosis (auditory hallucinations). HOSPITAL COURSE: Client was admitted to our unit and was provided with a high degree of safety through the structure and active adult engagement he received here. We had him participate in one-to-one unit and group therapy focused on improving coping skills, identify stressors that led to admission and coming up with a safety plan should suicidal ideation occur after discharge. Client work actively on all the above issues. We were unable to identify a specific stressor. May's medication regimen was significantly simplified to now include Venlafaxine Risperdal, and Trileptal. With the combination of the medication changes and the therapy on our unit he showed gradual and steady improvement on a daily basis. Today he is requesting discharge, and I believe this is appropriate. He detailed a reasonable safety plan with me. He has a high degree of support in his care team as well as very active involved parents. MENTAL STATUS: Client neatly and stylishly dressed. Behavior calm. Attitude cooperative. Speech monotone, one-word answers. Mood okay. Affect congruent. Normal intensity. Thought process, client is unable to relate a coherent history. His thought process is quite concrete and he is able to appreciate only simple abstractions. He did not appear to be responding to internal stimuli. Thought content significant themes for planning what he will do with himself this next week. He denied suicidal ideation or auditory hallucinations. His insight and judgment appears to be at baseline. Impulse control highly contained. Has a difficult time handling impulses of fear, anger or sadness. Reality testing is intact. Competence to handle current stressors appears to have returned to baseline. DISCHARGE DIAGNOSIS: AXIS I: 1. 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 2. History of substance use disorder in remission, marijuana and alcohol. AXIS II: Deferred. AXIS III: 1. Seizure disorder. 2. Traumatic brain injury. 3. Traumatic urethral injury. 4. Diabetes mellitus type 1. 5. Hypothyroidism. 6. Hypertension. 7. Hyperlipidemia. 8. 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 9. Traumatic brain injury with expressive aphasia. AXIS IV: Chronic medical illnesses. AXIS V: Current Global Assessment of Functioning equal to 40. DISCHARGE FOLLOWUP: Client to follow up with Dr. Korey Chaudhry March 29, 2017 at 2 p.m. DISCHARGE MEDICATIONS: 1. Patient to return to regular insulin regimen as prescribed by primary care. 3. Levothyroxine 25 mg daily. 4. Pepcid 20 mg daily. 5. Docusate sodium 250 daily. 6. Lisinopril 20 daily. Psychiatric meds: Venlafaxine 150 mg day Risperdal 4 mg at bedtime Trileptal 450 mg daily 600 at bedtime Clobazam 10 mg twice a day. ACTIVITIES AND DIET: Recommend ADA diet and limited physical activities until client meets with his primary care physician. CONDITION ON DISCHARGE: Fair. PROGNOSIS: Guarded. Client has very poor insight and is dealing with the stress of having his friends move on and he feels stuck in that he is unable to accomplish normal developmental tasks at this time. [facility]
--- NOTE | 2017-03-28 11:44 | PCM.DIMED ---
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 Veras at [facility]. Traumatic brain injury. Traumatic urethral injury Diabetes mellitus type 1. Hypothyroidism. Hypertension. Hyperlipidemia. 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 Traumatic brain injury with expressive aphasia. [place] IV: Chronic medical illness, limitation of physical function/ independence, cognitive impairment due to head injury. [place] V GAF 45 Medication Instructions Additional med instructions I Strongly encouraged patient to follow up with outpatient care: 1-Recommended patient takes medication as prescribed and not alter this unless under the direct care of a provider: Insulin schedule per primary care and outpatient follow-up. Levothyroxine 25 mg daily Pepcid 20 mg daily Docusate sodium 250 mg daily Lisinopril 20 mg daily Venlafaxine ER 75 mg tablets 2 tablets every morning Risperdal 4 mg at bedtime Oxcarbamazepine 400 mg every morning 600 mg at bedtime Clobazam 10 mg twice a day 2-Recommend client refrain from recreational drugs and alcohol while taking psychiatric medications. Diet Discharge Diet: Diabetic Activity Discharge Activity: Limited until seen by PCP Call your provider Call your provider for: Fever or Chills, Bleeding, Vomitting Patient Instructions Follow-up plan Plan follow-up appointment per high risk case manager DTO. Client to follow-up with regular team including psychiatrist Dr. Guadarrama in [place]. Follow-up with PCP in: 2 weeks Elijah Rodriguez MD Mar 28, 2017 11:44
--- NOTE | 2017-03-28 13:04 | NUR ---
1622-2024. nurs. Discharge note. Pt reporting readiness for discharge taking meds as sheduled and eating some of breakfast and lunch. Pt verbalizing understanding of med plan and follow up apt on Wednesday. Discharge plan reviewed with pt's parents who are primary care givers for pt. Pt with bright affect and pt's parents exhibiting caring and positive interaction with pt. Pt discharged home at 1210.
== END 2017-03-28 12:10 | disposition home or self-care (01) | DRG 884 ==
LOC: SED 16:28 → MHC 03-19 06:27
PROVIDERS: ADMIT Psychiatry & Neurology Psychiatry; ATTEND Psychiatry & Neurology Psychiatry
DX: F06.31 Mood disorder due to known physiological condition with depressive features (principal); R45.851 Suicidal ideations; R47.01 Aphasia; K62.5 Hemorrhage of anus and rectum; Z91.5 Personal history of self-harm; Z79.4 Long term (current) use of insulin; Z87.820 Personal history of traumatic brain injury; Z87.891 Personal history of nicotine dependence; I10 Essential (primary) hypertension; E03.9 Hypothyroidism, unspecified; F63.9 Impulse disorder, unspecified; R62.50 Unspecified lack of expected normal physiological development in childhood; E10.65 Type 1 diabetes mellitus with hyperglycemia; K59.00 Constipation, unspecified

== ENCOUNTER 2017-05-18 19:56 | Emergency (ER) | payer OTHER, MEDICARE, MEDICAID ==
[~2017-05-18] VITALS: Ht 175.3 cm; Wt 70.5 kg
[~2017-05-18 19:56] MED LIST changes: -AGM875T PO; -LAMO100T PO; -LIT300 PO; -OXCA150T PO; +OXCA300O5 PO; -RISP1TAB90 PO; +RISP2TAB21 PO; -TOPI25TA26 PO; +VENL75CA PO; -VENL75TA3 PO
--- NOTE | 2017-05-18 20:05 | ED.REPORT ---
HPI-GI Bleed Date of Service May 18, 2017 ED Provider: Tez Salguero MD The pt is a 27 year old male with a hx of HTN, TBI with subsequent cognitive delay, suicidal ideation and multiple attempts, polysubstance abuse, seizures, and DM presenting to the ED with his father complaining of vomiting onset tonight. The vomit is described as black, coffee-ground appearing vomit. Per the father, he was found sitting down in the park near their [place] with a bottle of some clear liquid that smelled of alcohol. He was barely able to walk home. His father reports that he does not believe that the pt has fallen anytime recently. He was concerned that the pt had ingested something else recently, such as heroin. HPI is limited due to pt condition. Nursing Notes Stated Complaint: VOMITING BLOODY EMESIS Nursing Notes Reviewed: Yes Allergies: Coded Allergies: bupropion (Verified Allergy, Unknown, 04/13/16) quetiapine fumarate (Verified Allergy, Unknown, 04/13/16) lorazepam (Verified Adverse Reaction, Unknown, does not go well with his other meds per pshychiatrist, 04/13/16) Scheduled Atorvastatin (Lipitor) 40 Mg Tablet 40 MG PO HS Ergocalciferol (Vitamin D2) (Ergocal) 2,500 Unit Capsule 50,000 UNIT PO WEEKLY Famotidine (Pepcid) 20 Mg Tablet 20 MG PO DAILY Insulin Detemir (Levemir Flextouch) 100 Unit/1 Ml Insuln.pen 22 UNIT SQ BID Insulin Lispro (Humalog Kwikpen) 200 Unit/Ml (3 Ml) Insuln.pen 10-15 UNIT SQ TIDWM Levothyroxine (Levothyroxine) 25 Mcg Tablet 25 MCG PO DAILY Lisinopril (Lisinopril) 20 Mg Tablet 20 MG PO DAILY Mirtazapine (Mirtazapine) 15 Mg Tablet 15 MG PO HS Oxcarbazepine (Oxcarbazepine) 300 Mg Tablet 450 MG PO DAILY Oxcarbazepine (Oxcarbazepine) 300 Mg Tablet 600 MG PO QPM Risperidone (Risperidone) 3 Mg Tablet 3 MG PO HS Venlafaxine ER (Effexor XR) 75 Mg Capsule 150 MG PO DAILYWM Scheduled PRN Clobazam (Onfi) 10 Mg Tablet 10 MG PO BID PRN PRN For Seizure Sennosides (Senna) 8.6 Mg Tablet 8.6 MG PO DAILY PRN PRN For Constipation General Time Seen by Provider: 20:13 Chief Complaint Chief Complaint: Vomiting coffee grounds (black) Hx Obtained From: Other family... (Father) Onset Occurred: 1 - 4 hours ago Immunizations: Unknown Recent Healthcare: Recent doctor visit, Recent hospitalization Similar Sx Previous: Yes Past Medical History Past Medical History Notes: Neuro: Dr. Melton PCP: Dr. Mcdonald Psych: Dr. Chaudhry Junior Buyer: Dr. Bowen Phycologist: Dr. Aponte Last Admit 05/2016 w/depresison Past Medical History 1. Seizure disorder, followed by Dr. Veras at [facility]. 2. h/o Traumatic brain injury. 3. h/o Polysubstance abuse. 4. Major depression. 5. History of suicidal ideation and multiple attempts. 6. Traumatic urethral injury 6. Diabetes mellitus type 1. 7. Hypothyroidism. 8. Hypertension. 9. Hyperlipidemia. 10. Cognitive delay secondary to traumatic brain injury as a child (Traumatic brain injury with expressive aphasia) 12. Stroke Reports: Mental illness Past Surgical History pelvis rebuilt at [facility] 2004 Family History He has a family history of bipolar and schizophrenia. Records show 2 completed suicides one on each side of the family Smoking History Former Smoker Social History Smokes with a vape pen, recently quit Alcohol Use: Denies alcohol use Other Social History: Good social support, Lives with parents, Local resident Occupation no work or school Ambulatory Status Independent Review of Systems Unable to Obtain ROS Intoxicated Physical Exam Initial Vital Signs Vital Signs (First) Date Time Temp Pulse Resp B/P Pulse Ox O2 Delivery O2 Flow Rate FiO2 05/18/17 20:12 36.5 82 127/75 97 Room Air 05/18/17 21:50 18 05/18/17 23:08 2 Initial VS: Reviewed General/Constitutional: Awake Alertness: Positive: Somnolent incontinence of urine Respiratory / Chest: Atraumatic, Breath sounds NL, Breath sounds = bilat, No respiratory distress Cardiovascular: Heart rate NL, Regular rhythm, Heart sounds NL, No gallop, No murmurs, No rubs Abdomen: Atraumatic, Soft, Non-tender, BS normoactive Rectum / Perineum: Atraumatic guaiac negative non tender Head / Eyes: Atraumatic, PERRL Neurologic: No sensory deficits No focal neurological deficits Interpretation & Diagnostics Lab Results Interpretation Result Diagram: 05/18/17211805/18/172118 Test 05/18/17 00:25 05/18/17 21:19 05/18/17 21:20 Urine Color Yellow (YELLOW) Urine Appearance Clear (CLEAR,HAZY) Urine pH 6.0 (5.0-8.0) Urine Specific [place] 1.010 (1.003-1.035) Urine Protein Tracemg/dL (NEG,TRACE) Urine Glucose (UA) 500mg/dL (NEGATIVE) Urine Ketones Negativemg/dL (NEGATIVE) Urine Occult Blood Trace (NEGATIVE) Urine Nitrite Negative (NEGATIVE) Urine Bilirubin Negative (NEGATIVE) Urine Urobilinogen Normalmg/dL (NORMAL) Urine Leukocyte Esterase Negative (NEGATIVE) Urine RBC 0-2/hpf (0-2) Urine WBC 0-5/hpf (0-5) Urine Epithelial Cells Occasional/hpf (NONE-MOD) Urine Crystals None seen (NONE SEEN) Urine Bacteria Few/hpf (NONE-FEW) Urine Hyaline Casts None/lpf (NONE) Urine Granular Casts None seen (NONE SEEN) Urine Waxy Casts None seen (NONE SEEN) Urine Red Blood Cell Casts None seen (NONE SEEN) Urine White Blood Cell Casts None seen (NONE SEEN) Urine Mucus None seen (None Seen) Urine Trichomonas None seen (NONE SEEN) Urine Yeast None (NONE SEEN) Urinalysis Comment None Urine Culture Reflexed Not indicated White Blood Count 6.0th/mm3 (3.8-10.1) Red Blood Count 4.97mil/mm3 (4.40-5.80) Hemoglobin 15.7g/dL (13.8-17.2) Hematocrit 44.1% (41.0-50.0) Mean Corpuscular Volume 88.7fL (81-100) Mean Corpuscular Hemoglobin 31.6pg (27.0-35.0) Mean Corpuscular Hemoglobin Concent 35.6% (32.0-37.0) Red Cell Distribution Width 12.0% (12.3-15.4) Platelet Count 187bil/L (150-400) Neutrophils (%) (Auto) 72.1% (40-74) Lymphocytes (%) (Auto) 18.9% (14-46) Monocytes (%) (Auto) 6.0% (4-12) Eosinophils (%) (Auto) 1.7% (0-5) Basophils (%) (Auto) 1.0% (0-3) Prothrombin Time 10.3sec (8.1-12.5) Prothromb Time International Ratio 0.96ratio Sodium Level 136mEq/L (134-144) Potassium Level 4.4mEq/L (3.5-5.2) Chloride Level 92mEq/L (97-108) Carbon Dioxide Level 22mmol/L (18-29) Blood Urea Nitrogen 11mg/dL (6-20) Creatinine 0.73mg/dL (0.76-1.27) Estimat Glomerular Filtration Rate 136mL/min (>59) Glucose Level 344mg/dL (60-99) Calcium Level 9.0mg/dL (8.5-10.1) Magnesium Level 2.0mg/dL (1.6-2.6) Total Bilirubin 0.2mg/dL (0.0-1.2) Aspartate Amino Transf (AST/SGOT) 21U/L (0-50) Alanine Aminotransferase (ALT/SGPT) 13U/L (0-44) Alkaline Phosphatase 101U/L (25-150) Total Protein 7.2g/dL (6.4-8.4) Albumin 4.5g/dL (3.4-5.0) Alcohols 203mg/dL (0-10) Hold Blum Top Tube Received (Received) Lab Results Interpretation: Urine Drug Screen: Positive for benzodiazepines and marijuana ECG Interpretation ECG Interpretation: Rate 113 Sinus tachycardia Prolonged QT interval QTc 659 New when compared to previous dated 10/18/2018 Time: 20:27 Interpreted by: ED physician X-Ray Chest Interpretation Chest Xray Interpretation: IMPRESSION: No radiographic evidence of acute cardiopulmonary pathology. Dictated by: Johnny Elizondo M.D. on 05/18/2017 at 20:59 Approved by: Johnny Elizondo M.D. on 05/18/2017 at 21:00 View: Portable, 1 view Interpretation / Wet Read by: Interpret - Radiologist Re-Eval/Medical Decision Med Decision/Clinical Course 19-year-old male with a history of head injuries type II diabetes and alcohol abuse presenting today with hematemesis and alcohol intoxication. Also has benzodiazepines in his urine drug screen. After observation in the emergency department, the patient is more alert and does not have suicidal or homicidal ideation and is not hallucinating. His father was concerned about a possible need for psychiatric admission thus far I do not find indications for that. He still intoxicated, given unable to reach family to come and get him, it would be useful to reevaluate him when he is sobered and family is present. Re-Evaluation/Progress #1: Time of Eval: 20:49 Re-Evaluation/Progress Note: Spoke with the pt's father regarding the pt's medications. The plan for further evaluation following sobering is discussed. The father understands and agrees with the plan. Re-Evaluation/Progress #2: Time of Eval: 01:11 Re-Evaluation/Progress Note: Patient rechecked. Patient admitted to drinking earlier today. He denied having any intentions of hurting himself or others. When asked what year it was, he was unable to answer. Re-Evaluation/Progress #3: Time of Eval: 02:52 Re-Evaluation/Progress Note: Patient rechecked. Blood alcohol lovel of 0.118. The patient was sleeping. Attempted to reach family, but they did not answer the phone call. Patient will be evaluated when sober with family present. Counseled Regarding: Diagnosis, Lab results Discharge & Departure Shift Change Sign-Out Patient Care Transferred: Yes Discussed Complaint(s): Yes Laboratory Evaluation: Lab evaluation discussed Imaging Studies: Imaging discussed Impression: Primary Impression: Hematemesis Nausea presence: with nausea Qualified Code: K92.0 - Hematemesis Additional Impression: Alcohol abuse Disposition: Home Discharge Condition All VS Reviewed: Yes Condition: Improved Referrals: Aren Mcdonald MD (PCP) Care Transferred to: Dr. Redman For observation, sobering and reassessment the presence of family Care Transferred at: 03:00 Scribe Attestation Portions of this note were transcribed by Hugo Matthews and Joel Birch. I, Dr. Salguero personally performed the history, physical exam and medical decision- making; I reviewed and confirmed the accuracy of the information in the transcribed note. Signed by: Mariah Rios, 05/18/2017 copies to: Aren Mcdonald MD, Donald L MD May 18, 2017 20:05 May 18, 2017 20:21 HUGO MATTHEWS May 18, 2017 22:32
[2017-05-18] MEDS ORDERED: 0.9% Sodium Chloride 1,000 ML IV ONE ×2 (20:06→22:10)
[2017-05-18] MEDS ORDERED: Ondansetron 2 mg/mL 2 mL Inj IVPUSH ONE (20:10)
[2017-05-18] MEDS ORDERED: Pantoprazole 4 mg/mL 10 mL Inj IVPUSH ONE (20:10)
[2017-05-18 20:12] VITALS: BP 127/75; PULSE 82; O2SAT 97
[2017-05-18] MEDS ORDERED: SENN-133 PO (21:02)
[2017-05-18] MEDS ORDERED: RISP3TAB3 PO (21:02)
[2017-05-18] MEDS ORDERED: ERGO2500 PO (21:02)
[2017-05-18] MEDS ORDERED: INSU200I SQ (21:02)
[2017-05-18] MEDS ORDERED: OXCA300T2 PO ×2 (21:02)
[2017-05-18] MEDS ORDERED: MIRT15TA6 PO (21:02)
--- NOTE | 2017-05-18 21:02 | DRSVH ---
PROCEDURE: X-RAY CHEST ONE VIEW, PORTABLE ([id number]) INDICATIONS: diabetic vomiting TECHNIQUE: One view of the chest was acquired. COMPARISON: None. FINDINGS: Surgical changes and devices: None. Lungs and pleura: No pleural effusions or pneumothorax. Lungs are clear. Mediastinum: Mediastinal contours appear normal. Heart size is normal. Bones and chest wall: No suspicious bony lesions. Overlying soft tissues appear unremarkable. Old left rib fractures. IMPRESSION: No radiographic evidence of acute cardiopulmonary pathology. Dictated by: Johnny Elizondo M.D. on 05/18/2017 at 20:59 Approved by: Johnny Elizondo M.D. on 05/18/2017 at 21:00
[2017-05-18 21:31] LABS: EOSINOPHILS % (AUTO) 1.7 % (0-5); Mean Corpuscular Hemoglobin 31.6 pg (27.0-35.0); Mean Corpuscular Volume 88.7 fL (81-100); NEUTROPHILS % (AUTO) 72.1 % (40-74); Platelet Count 187 bil/L (150-400)
[2017-05-18 21:41] LABS: INR 0.96 ratio
[2017-05-18 21:50] VITALS: BP 127/64; PULSE 86; RESP 18; O2SAT 96
[2017-05-18 23:08] VITALS: BP 122/71; PULSE 86; RESP 16; O2SAT 96
[2017-05-19 01:20] VITALS: BP 112/64; PULSE 84; RESP 16; O2SAT 96
[2017-05-19 01:22] LABS: APPEARANCE,URINE CLEAR (CLEAR,HAZY); COLOR,URINE YELLOW (YELLOW); OCCULT BLOOD,URINE TRACE (NEGATIVE)
[2017-05-19 01:23] LABS: UROBILINOGEN,URINE NORMAL (NORMAL)
[2017-05-19 03:49] VITALS: BP 106/50; PULSE 64; RESP 14; O2SAT 98
[2017-05-19] MEDS ORDERED: RANI150C4 PO (05:59)
[2017-05-19 06:08] VITALS: BP 108/54; PULSE 81; RESP 15; O2SAT 94
[2017-05-19 07:55] VITALS: BP 112/61; PULSE 78; RESP 16; O2SAT 97
== END 2017-05-19 07:57 | disposition home or self-care (01) ==
LOC: SED 19:56
DX: K92.0 Hematemesis (principal); F10.129 Alcohol abuse with intoxication, unspecified; Y90.7 Blood alcohol level of 200-239 mg/100 ml; I10 Essential (primary) hypertension; F32.9 Major depressive disorder, single episode, unspecified; E78.5 Hyperlipidemia, unspecified; E10.9 Type 1 diabetes mellitus without complications; E03.9 Hypothyroidism, unspecified; Z86.73 Personal history of transient ischemic attack (TIA), and cerebral infarction without residual deficits; Z91.5 Personal history of self-harm; Z87.828 Personal history of other (healed) physical injury and trauma; Z87.820 Personal history of traumatic brain injury; Z98.890 Other specified postprocedural states; Z79.4 Long term (current) use of insulin; Z87.891 Personal history of nicotine dependence; Z88.4 Allergy status to anesthetic agent; Z88.8 Allergy status to other drugs, medicaments and biological substances
CPT/HCPCS: 36415; 71010; 80053; 81000; 81002; 82948; 83735; 85025; 85610; 86850; 93005; 96361; 96374; 96375; 99285; G0480; J2405; J7030; S0164